=== PATIENT | female | born 1990 | race Caucasian/White ===

== ENCOUNTER 2018-05-29 09:48 | Emergency (ER) | payer MEDICAID, SELFPAY ==
[2018-05-29 09:50] VITALS: BP 119/72; PULSE 101; RESP 17; TEMP 37.1; O2SAT 100; BMI 20.9
--- NOTE | 2018-05-29 10:06 | US_ITS ---
STUDY: FIRST TRIMESTER OBSTETRICAL ULTRASOUND REASON FOR EXAM: Female, 27 years old. Bleeding, LMP: 04/21/2018 TECHNIQUE: Transabdominal PRIOR ULTRASOUND: None. FINDINGS: There is visualization of a single gestational sac in a normal intrauterine position. The mean sac diameter (MSD) measures 1.2 cm, indicating an estimated gestational age (EGA) of 6 weeks, 0 days. The gestational sac shape is within normal limits. There is a visualized yolk sac. The yolk sac measures 3 mm. The placenta is non-visualized. There is no demonstrated embryo ( pole). . The estimated gestation age (EGA) by LMP is 5 weeks, 3 days. The estimated date of delivery (MIREYA) by LMP is 01/26/2019. The estimated gestation age (EGA) by US is 6 weeks, 0 days. The estimated date of delivery (MIREYA) by US is 01/22/2019. The uterus measures 8.5 x 5.4 x 4.3 cm. There is no demonstrated uterine fibroid. The cervix is closed. The right ovary measures 3.5 x 3.0 x 2.6 cm. There is no right ovarian cyst. There is no visualized right adnexal mass or complex lesion. The left ovary measures 3.7 x 3.5 x 2.6 cm. There is a simple left ovarian cyst measuring 1.4 cm. There is minimal fluid in the cul de sac. US/Transvaginal w/Preg US IMPRESSION: There is a normal-appearing intrauterine gestational sac. However there is no pole or heart rate identified. There is evidence of a normal-appearing yolk sac. It is likely too early to determine viability. Gestational sac measures 6 weeks 0 days. Correlation with beta-hCG studies and follow-up ultrasound in 5-7 days to determine viability. Simple left ovarian cyst Minimal free fluid No sonographic evidence of extrauterine gestation Electronically Signed: Alonzo Toussaint MD at 11:50 EDT , Service support ,
--- NOTE | 2018-05-29 10:09 | ED.VISSUMM ---
- ER Visit Summary Date of Service: 05/29/18 Chief Complaint: Vaginal bleeding History of Present Illness: The patient is a 27 F who presents with vaginal bleeding that slightly heavier than a menstrual period with cramping central infraumbilical discomfort. She does not know blood type. She does report nausea in the past couple of weeks. Onset of bleeding cramping discomfort this morning. She denies passing clots or tissue. She has no medical problems. She has no allergies. She has no past surgical history. She denies orthostatic symptoms. She denies pain referred to her shoulders. There is no history of trauma. Review of systems otherwise negative. Physical Examination: Vital signs are remarkable heart rate 101. Head is atraumatic normocephalic. Pupils are equal round reactive. Extraocular muscles are intact. TMs are pearly white with landmarks noted. Nares patent with no drainage. Posterior pharynx without erythema or exudate. Uvula is midline. There is no dysphonia or dysphasia. Trachea is midline. There is no stridor with auscultation of the neck. Heart is regular without murmur, gallop or rub. S1 and S2 are normal. Lungs are clear to auscultation with good movement of air bilaterally. Abdomen minimal infraumbilical central abdominal discomfort. Scar secondary to umbilical piercing. No other scars noted. There is no CVA tenderness noted. There is no evidence of inguinal hernia. He is alert oriented ?3 Test Results: Quantitative hCG 18,563. Pelvic ultrasound revealed a normal-appearing gestational sac. No heartbeat noted. Emergency Department Course and Treatment: Orders were placed to assess ABO Rh, serum quantitative, ultrasound to assess viability of and to evaluate for ectopic . Serum quant hCG was obtained as well. Order for pelvic set up was placed as well. Treatment Plan: Repeat quantitative hCG in 2 days and follow-up with Dr. Madai Foote in 1 week Disposition: Discharged to home with appropriate home-going instructions Impression: Vaginal bleeding first trimester, threatened AB This note was generated with [employer] dictation software. It may contain incorrect words, spelling, and punctuation that were not noted in review of the chart prior to signing ED Disposition - Plan for ED Patient: Disposition: Home or Assisted Living Chief Complaint: Vag Bld, Preg Instructions: ED Miscarriage Poss Referrals: Care Physician,No Primary [Primary Care Provider] - Laura Blair MD [STAFF PHYSICIAN] - 1 Week Additional Instructions: You will need to present to outpatient lab in 2 days to have repeat blood work.
--- NOTE | 2018-05-29 10:12 | ED.DCSUM_ITS ---
- ER Visit Summary Date of Service: 05/29/18 Chief Complaint: Vaginal bleeding History of Present Illness: The patient is a 27 F who presents with vaginal bleeding that slightly heavier than a menstrual period with cramping central infraumbilical discomfort. She does not know blood type. She does report nausea in the past couple of weeks. Onset of bleeding cramping discomfort this morning. She denies passing clots or tissue. She has no medical problems. She has no allergies. She has no past surgical history. She denies orthostatic symptoms. She denies pain referred to her shoulders. There is no history of trauma. Review of systems otherwise negative. Physical Examination: Vital signs are remarkable heart rate 101. Head is atraumatic normocephalic. Pupils are equal round reactive. Extraocular muscles are intact. TMs are pearly white with landmarks noted. Nares patent with no drainage. Posterior pharynx without erythema or exudate. Uvula is midline. There is no dysphonia or dysphasia. Trachea is midline. There is no stridor with auscultation of the neck. Heart is regular without murmur, gallop or rub. S1 and S2 are normal. Lungs are clear to auscultation with good movement of air bilaterally. Abdomen minimal infraumbilical central abdominal discomfort. Scar secondary to umbilical piercing. No other scars noted. There is no CVA tenderness noted. There is no evidence of inguinal hernia. He is alert oriented ?3 Test Results: Quantitative hCG 18,563. Pelvic ultrasound revealed a normal- appearing gestational sac. No heartbeat noted. Emergency Department Course and Treatment: Orders were placed to assess ABO Rh, serum quantitative, ultrasound to assess viability of and to evaluate for ectopic . Serum quant hCG was obtained as well. Order for pelvic set up was placed as well. Treatment Plan: Repeat quantitative hCG in 2 days and follow-up with Dr. Madai Foote in 1 week Disposition: Discharged to home with appropriate home-going instructions Impression: Vaginal bleeding first trimester, threatened AB This note was generated with [employer] dictation software. It may contain incorrect words, spelling, and punctuation that were not noted in review of the chart prior to signing ED Disposition - Plan for ED Patient: Disposition: Home or Assisted Living Chief Complaint: Vag Bld, Preg Instructions: ED Miscarriage Poss Referrals: Care Physician,No Primary [Primary Care Provider] - Laura Blair MD [STAFF PHYSICIAN] - 1 Week Additional Instructions: You will need to present to outpatient lab in 2 days to have repeat blood work.
[2018-05-29 11:07] LABS: hCG Titer Quant., Serum 18593 mIU/mL (<9 non-preg)
[2018-05-29 13:17] VITALS: BP 105/54; PULSE 78; RESP 16; O2SAT 99
== END 2018-05-29 13:21 | disposition home or self-care (01) ==
PROVIDERS: Emergency Provider Emergency Medicine
DX: O20.0 Threatened abortion (principal); O99.330 Smoking (tobacco) complicating pregnancy, unspecified trimester; Z3A.00 Weeks of gestation of pregnancy not specified
CPT/HCPCS: 76817; 84702; 86900; 86901; 99283

== ENCOUNTER → 2018-05-31 17:07 | Outpatient (CLI) | payer MEDICAID, SELFPAY | PROVIDERS: Obstetrics & Gynecology; Visit Provider Emergency Medicine | DX: O46.90 Antepartum hemorrhage, unspecified, unspecified trimester (principal); Z3A.00 Weeks of gestation of pregnancy not specified | CPT/HCPCS: 36415; 84702 ==

== ENCOUNTER 2019-01-07 16:40 | Inpatient (IN) | payer MEDICAID, SELFPAY ==
[2019-01-07 17:32] VITALS: BMI 32.5
[2019-01-07 17:33] LABS: Protein:Creat Ratio 911 mg/g CRE (0-200)
[2019-01-07] MEDS: 0.9% Saline Lock 10 ML Syringe IV (17:45)
[2019-01-07 18:04] LABS: Hematocrit 38.1 % (37-47); Hemoglobin 12.4 g/dl (12.0-15.0); Mean Corp Hgb Conc 32.5 g/gl (32-36); Mean Corpuscular Hgb 29.2 pg (27.0-32.0); Mean Corpuscular Volume 89.6 fL (81-99); Mean Platelet Vol. 11.6 fl (6.2-12.0); Platelet Count 258 K/mm3 (150-450); RBC Distribution Width CV 13.3 % (11.6-14.6); RBC Distribution Width SD 42.9 fl (35.1-43.9); Red Blood Count 4.25 M/mm3 (4.2-5.4); Scan Indicated on CBC? Y/N NO; White Blood Count 13.3 K/mm3 (4.4-11.0)
[2019-01-07 18:10] LABS: Prothrombin Time (Protime)PT. 13.1 SECONDS (11.7-14.9)
[2019-01-07 18:11] LABS: Partial Thromboplast Time 28.6 Seconds (24.1-36.2)
[2019-01-07 18:18] LABS: AST(SGOT) 30 U/L (15-37); Alanine Aminotransfer ALT/SGPT 26 U/L (13-56); Creatinine, Serum 0.83 mg/dL (0.55-1.02); EST Glomerular Filtration Rate 88 mL/min (>60); Est Glom Filt Rate - Afr Amer 107 mL/min (>60); Uric Acid 3.7 mg/dL (2.6-6.0)
[2019-01-07] MEDS: miSOPROStol 25 MCG TABLET VAGINAL (18:26)
--- NOTE | 2019-01-07 18:39 | PCM.HP.OB ---
- Problem List (1) Pre-eclampsia in third trimester Status: Acute History Date of Admission: 01/07/19 Final MIREYA: 01/26/19 Final MIREYA Source: US <20 weeks Gestational age: 37 Weeks and 2 Days History of this : This is a 28 year-old, G [1], P [0], at 37 weeks gestational age presenting to [facility] today for BP check visit. Patient was seen on Friday 01/05 for visit and noted to have elevated blood pressure at visit 142/82. Urine P/C ratio at that time was 0.3 and other pre-eclampsia panel bloodwork in the normal range. At visit today, patient's BP again elevated 146/94 with follow-up blood pressures in the 150s/100s. Patient sent to labor and delivery for induction of labor for GHTN vs. pre-eclampsia. Allergies No Known Allergies Allergy (Verified 01/07/19 17:18) Home Medications: Home Medications Sertraline HCl [Zoloft] 50 mg PO DAILY 05/29/18 Vits [Prenatabs FA] 1 tablet PO DAILY 01/07/19 Smoking Status: Former smoker Alcohol: None Substance Use Type: Marijuana - Admitted last use about a month ago Number of Fetus(es): 1 Heart Tracing: Baseline 130, moderate variability, + accels, no decels noted TOCO Analysis: Irregular ctx q 2-6 minutes, lasting 45-70 seconds, palpate mildly strong History Past Pregnancies: Past Pregnancies Delivery Date Name GA/Weeks Outcome Route Weight Gender Labor Length Anesthesia Delivery Location Provider FOB Labs: O+, Abs Neg, Rubella Imm, HepBsAg Neg, HIV NR, Syphilis NR, GC/CT Neg/Neg, CBC WNL x 2, GBS Positive, Sequential Screen Negative, 1 hour GCT = 92, Urine Tox in beginning of - Neg, Urine Culture Negative Expected Infant Delivery Method: Spontaneous Vaginal Describe any other labor & delivery plans:: May be interested in epidural Number of Visits: 14 Review of Systems Constitutional: Denies: Chills, Fever, Weight Change HEENT: Reports: Head Aches - Mild - easily relieved with Tylenol. Denies: Sinus Congestion, Sinus Drainage Cardiovascular: Denies: Chest Pain, Palpitations Respiratory: Denies: Cough, Shortness of breath at rest, Sputum production Gastrointestinal: Denies: Abdominal Pain, Nausea, Vomiting Genitourinary: Denies: Dysuria Gynecological: Denies: Vaginal bleeding, Vaginal discharge, Vaginal itching Musculoskeletal: Denies: Joint Pain, Joint Tenderness Skin: Denies: Rash, Wounds Neurological: Denies: Numbness, Tingling, Focal weakness Psychiatric: Denies: Anxiety, Depression, Homicidal Ideations, Suicidal Ideations Hematologic/ Lymphatic: Denies: Easy Bruising, Easy Bleeding Physical Exam Vitals: See Nursing Note for Vitals - BPs in 140-150/80-90s, otherwise vitals in normal range and patient is afebrile General: Alert, Oriented x3, No apparent distress HEENT: Atraumatic, Normocephalic. Negative for: Thyromegaly, Lymphadenopathy Cardiovascular: Regular rate, Regular Rhythm Lungs: Normal air movement Abdomen: Soft, Non Tender, Gravid Extremities:: Other - +1/+1 pitting edema noted in LE Neurological: Cranial nerves II-XII grossly intact, Deep Tendon Reflexes 2+/4 and Symmetrical, Neuro grossly intact ASSIST[employer]CH [employer]GER: Normal external genitalia. Negative for: Vulvar lesions Estimated gestational size: Appropriate for gestational size Presentation: Cephalic Cervix Dilation (cm): 1 Station: -2 Effacement (%): 70 Assessment/Plan All Active Problems Pre-eclampsia in third trimester (Acute) This is a 28 year-old, G [1], P [0], at 37 weeks gestational age, Pre-Eclampsia without severe features, Category I FHT. P: 1) Patient admitted for IOL - Cytotec 25mcg PV per protocol 2) Pre-eclampsia bloodwork in normal range, increased proteinuria noted (from 0.3 to 0.911) - diagnosis of pre-eclampsia without severe features noted 3) Dr. Bell aware of admission and is in agreement with plan of care 4) Anticipate repeat pre-eclampsia panel if further elevations in BP noted or patient becomes symptomatic 5) Reassess cervical exam PRN or with change in maternal or status Alcira Merida APRN-OCTAVIA
[2019-01-07 19:32] LABS: Amphetamine Urine VISTA NEGATIVE (<1000 ng/mL); Barbiturate Urine VISTA NEGATIVE (< 200 ng/mL); Benzodiazepine Urine VISTA NEGATIVE (< 200 ng/mL); Cocaine Urine VISTA NEGATIVE (< 300 ng/mL); Ecstacy Urine VISTA NEGATIVE (< 500 ng/mL); Methadone Urine VISTA NEGATIVE (< 300 ng/mL); PCP Urine VISTA NEGATIVE (< 25 ng/mL); THC Urine VISTA NEGATIVE (< 50 ng/mL); Vista UDS pH Range 6
[2019-01-07] MEDS: Sertraline 50 MG Tablet PO (21:25)
[2019-01-07] MEDS: Mag Hydrox/Al Hydrox/Simeth 30 ML UDC PO (22:08)
[2019-01-07] MEDS: 0.9% Normal Saline 100 ML IV.SOLN. INTRA-UTER (22:35)
--- NOTE | 2019-01-07 22:42 | PCM.PN.OB ---
Patient Problems: Active and Suspected Problems Pre-eclampsia in third trimester (Acute) Subjective: Patient resting in bed at this time, reports no issues currently. Denies CODY, denies scotoma, denies RUQ pain. Discussed plan for repeat SVE at this time, patient consents and all questions answered Objective: VSS, Afebrile. Blood pressures consistently still in 140/90s. FHT baseline 125, moderate variability, + accels, no decels Ctx q 1-4 minutes, palpate mild to moderate in strength SVE = 1-2/70/-2 anterior to midposition, cervical salazar bulb placed without difficulty - Physical Exam General: Alert, Oriented x3, Cooperative HEENT: Atraumatic, Normocephalic Lungs: Normal air movement Cardiovascular: Regular rate, No murmurs Abdomen: Soft, Non Tender, Gravid, Appropriate for Gestational Age Extremities: Capillary Refill Less than 3 Seconds, Edema - +1/+1 edema in LE Musculoskeletal: No Tenderness to Palpation of Joints or Extremities Neurological: Cranial nerves II-XII grossly intact, Deep Tendon Reflexes 2+/4 and Symmetrical Psych/Mental Status: Normal Affect, Appropriate Weight: 190 lb 0.615 oz Body Mass Index (BMI) 32.5 Intake and Output for Last 24 Hours 01/05/19 01/06/19 01/07/19 23:59 23:59 23:59 Intake Total 1200 / 1200 Output Total 600 / 600 Balance 600 / 600 Laboratory Tests Past 24 Hrs 01/07/19 01/07/19 01/07/19 17:10 17:45 17:45 WBC 13.3 H RBC 4.25 Hgb 12.4 Hct 38.1 MCV 89.6 MCH 29.2 MCHC 32.5 RDW 13.3 RDW Differential 42.9 Plt Count 258 MPV 11.6 PT INR APTT Creatinine Estim Creat Clear Calc Est GFR (MDRD) Af Amer Est GFR (MDRD) Non-Af Uric Acid AST ALT U Random Total Protein 44.0 H Urine Creatinine 48.30 Protein/Creatinin Ratio 911 H Urine Opiates Screen Urine Methadone Screen Ur Barbiturates Screen Ur Phencyclidine Scrn Ur Amphetamines Screen U Methamphetamin-MDMA U Benzodiazepines Scrn Urine Cocaine Screen U Cannabinoids Screen Ur Drug Screen Comment Blood Type O POSITIVE Antibody Screen NEGATIVE 01/07/19 01/07/19 01/07/19 17:45 17:45 18:30 WBC RBC Hgb Hct MCV MCH MCHC RDW RDW Differential Plt Count MPV PT 13.1 INR 1.0 APTT 28.6 Creatinine 0.83 Estim Creat Clear Calc 88.70 Est GFR (MDRD) Af Amer 107 Est GFR (MDRD) Non-Af 88 Uric Acid 3.7 AST 30 ALT 26 U Random Total Protein Urine Creatinine Protein/Creatinin Ratio Urine Opiates Screen NEGATIVE Urine Methadone Screen NEGATIVE Ur Barbiturates Screen NEGATIVE Ur Phencyclidine Scrn NEGATIVE Ur Amphetamines Screen NEGATIVE U Methamphetamin-MDMA NEGATIVE U Benzodiazepines Scrn NEGATIVE Urine Cocaine Screen NEGATIVE U Cannabinoids Screen NEGATIVE Ur Drug Screen Comment Blood Type Antibody Screen Medical Necessity - Tobacco Use Smoking Status: Former smoker Assessment/Plan All Active Problems Pre-eclampsia in third trimester (Acute) 28 y/o @ 37.2 weeks, IOL for Pre-Eclampsia without Severe Features, Category I FHT P: 1) Cervical salazar catheter placed, patient already cassia q 1-4 minutes. Will plan to initiate IV pitocin with catheter in place if contractions space out > 4 minutes apart with maximum pitocin dose 10 milliunits/hour 2) Anticipate plan for IV pitocin per protocol for labor augmentation once salazar catheter expelled. 3) Encourage position changes, PO hydration - IV heplocked at this time. Once pitocin started with titrate total IV+PO fluids to the 125 ml/hr 4) Reassess cervical dilation PRN with changes in maternal or status Alcira Merida APRN-CNM
[2019-01-07] MEDS: Acetaminophen 325 MG Tablet PO (23:00)
[2019-01-08] MEDS: Acetaminophen 325 MG Tablet PO (03:03)
[2019-01-08] MEDS: 0.9% Saline Lock 10 ML Syringe IV ×3 (04:16→18:35)
[2019-01-08] MEDS: Oxytocin 30 units/NS 500 ml 30 UNITS/500 ML IV.SOLN IV (04:18)
[2019-01-08] MEDS: Lactated Ringers 1,000 ML 50 ML IV ×3 (04:18→11:02)
[2019-01-08] MEDS: Nalbuphine 10 MG/ML Ampul IV ×2 (05:06→08:05)
--- NOTE | 2019-01-08 06:23 | PCM.PN.OB ---
Patient Problems: Active and Suspected Problems Pre-eclampsia in third trimester (Acute) Subjective: Patient resting, comfortable after receiving dose of Nubain. Denies any continued pelvic pain/pressure at this time. Denies CODY, denies scotoma or RUQ pain. Consents to repeat at this time. Objective: VSS, Afebrile. Blood Pressures overnight 120s-140s/80-90s FHT baselin 125, moderate variability, + accels, no decels noted Ctx q 2-3 minutes, moderately strong to palpation SVE = 5-6/80/-1 - Physical Exam General: Alert, Oriented x3, No apparent distress Lungs: Normal air movement Cardiovascular: Regular rate, Regular Rhythm Abdomen: Soft, Non Tender, Gravid Extremities: Edema Neurological: Deep Tendon Reflexes 2+/4 and Symmetrical - no clonus noted Psych/Mental Status: Normal Affect, Appropriate Weight: 190 lb 0.615 oz Body Mass Index (BMI) 32.5 Intake and Output for Last 24 Hours 01/06/19 01/07/19 01/08/19 23:59 23:59 23:59 Intake Total 1800 / 1800 200 / 200 Output Total 1200 / 1200 700 / 700 Balance 600 / 600 -500 / -500 Laboratory Tests Past 24 Hrs 01/07/19 01/07/19 01/07/19 17:10 17:45 17:45 WBC 13.3 H RBC 4.25 Hgb 12.4 Hct 38.1 MCV 89.6 MCH 29.2 MCHC 32.5 RDW 13.3 RDW Differential 42.9 Plt Count 258 MPV 11.6 PT INR APTT Creatinine Estim Creat Clear Calc Est GFR (MDRD) Af Amer Est GFR (MDRD) Non-Af Uric Acid AST ALT U Random Total Protein 44.0 H Urine Creatinine 48.30 Protein/Creatinin Ratio 911 H Urine Opiates Screen Urine Methadone Screen Ur Barbiturates Screen Ur Phencyclidine Scrn Ur Amphetamines Screen U Methamphetamin-MDMA U Benzodiazepines Scrn Urine Cocaine Screen U Cannabinoids Screen Ur Drug Screen Comment Blood Type O POSITIVE Antibody Screen NEGATIVE 01/07/19 01/07/19 01/07/19 17:45 17:45 18:30 WBC RBC Hgb Hct MCV MCH MCHC RDW RDW Differential Plt Count MPV PT 13.1 INR 1.0 APTT 28.6 Creatinine 0.83 Estim Creat Clear Calc 88.70 Est GFR (MDRD) Af Amer 107 Est GFR (MDRD) Non-Af 88 Uric Acid 3.7 AST 30 ALT 26 U Random Total Protein Urine Creatinine Protein/Creatinin Ratio Urine Opiates Screen NEGATIVE Urine Methadone Screen NEGATIVE Ur Barbiturates Screen NEGATIVE Ur Phencyclidine Scrn NEGATIVE Ur Amphetamines Screen NEGATIVE U Methamphetamin-MDMA NEGATIVE U Benzodiazepines Scrn NEGATIVE Urine Cocaine Screen NEGATIVE U Cannabinoids Screen NEGATIVE Ur Drug Screen Comment Blood Type Antibody Screen Medical Necessity - Tobacco Use Smoking Status: Former smoker Assessment/Plan All Active Problems Pre-eclampsia in third trimester (Acute) 28 y/o @ 37.3 weeks, IOL for Pre-Eclampsia without Severe Features, Category I FHT P: 1) Guerrero bulb expelled with SVE exam - continue IV pitocin at this time for labor augmentation per protocol 2) Start IV PCN for GBS prophylaxis at this time per protocol 3) Encourage position changes, clear liquid diet now 4) Epidural on demand if desired by patient 5) Report given to oncoming provider Alcira CUMMINGS
--- NOTE | 2019-01-08 07:55 | PN_ITS ---
Progress Note pt seen at bedside, resting comfortably. Pitocin at 6mu. AROM performed- clear fluid. Vertex on exam- /-1. IUPC placed. Pt is planning epidural. PCN for GBS. Pt reports intermittent headache but otherwise if feeling well. denies CP, Blurry vision or epigastric pain. Magnesium was not started- PRE E without severe features. If BP trends up or patient is symptomatic will start Magnesium. Anticipate . FHR 125 mod jacy, + accels no decels- Reactive cat 1. TOCO q 2- 3min.
[2019-01-08] MEDS: fentaNYL-bupivacaine (epidural) 100 ML BAG EPIDURAL ×2 (08:45→13:01)
[2019-01-08] MEDS: Ondansetron 4 MG/2 ML Vial IV (10:11)
[2019-01-08] MEDS: Oxytocin 30 units/NS 500 ml 30 UNITS/500 ML IV.SOLN 334 UNITS IV (16:55)
--- NOTE | 2019-01-08 17:15 | PCM.OB.VAG ---
Vaginal Delivery Maternal Presentation: Medically Indicated Induction Method of Induction: Pitocin, Amniotomy, Cytotec Amniotic Membrane Rupture Type: Spontaneous Amniotic Fluid Description: Clear Final MIREYA: 01/26/19 Gestational age: 37 Weeks and 3 Days Date of Procedure: 01/08/19 Pre-Operative Diagnosis: Preeclampsia without severe features, early term gestation Post-Operative Diagnosis: Live male infant born Surgery/ Procedure Performed: Spontaneous Vaginal Delivery Type of Anesthesia: Epidural Description of Procedure: of live male infant born- head delivered followed by anterior shoulder however 50sec until rest of body delivered- tight vaginal canal- no shoulder dystocia, poor maternal pushing efforts. to peds upon delivery for evaluation. Vagina was intact after delivery. Placenta delivered without difficulty. Presentation: Vertex Placental Delivery Description: Spontaneous Placenta Disposition: [facility] Cord Vessel Description: 3 Vessels Nuchal Cord Compression: Without compression Cord Gases drawn per routine: ABG, VBG Cord Entanglement: None Drain: Guerrero to straight drain Estimated Blood Loss: 200 A gender: Male (1 minute): 5 (5 minute): 9 Episiotomy Description: None Laceration: None Medications given after delivery: IV Pitocin Complications: None
[2019-01-08] MEDS: Oxytocin 30 units/NS 500 ml 30 UNITS/500 ML IV.SOLN 167 UNITS IV (17:25)
[2019-01-08] MEDS: Acetaminophen 500 MG Tablet 1000 MG PO (20:32)
[2019-01-08 20:35] VITALS: BP 135/76; PULSE 120; RESP 16; TEMP 37.5; O2SAT 96
[2019-01-08] MEDS: Sertraline 50 MG Tablet PO (21:55)
[2019-01-09] VITALS: BP 129/77; PULSE 107; RESP 16; TEMP 36.8; O2SAT 97
[2019-01-09 04:00] VITALS: BP 143/98; PULSE 96; RESP 16; TEMP 36.9; O2SAT 97
--- NOTE | 2019-01-09 06:31 | PCM.PN.OB ---
Patient Problems: Active and Suspected Problems Pre-eclampsia in third trimester (Acute) Subjective: pt seen at bedside doing well. breast feeding. Pt reports good pain control. lochia mild. - Physical Exam General: Alert, Oriented x3 Abdomen: Soft, Non Tender, Non-Distended, - - fundus firm Extremities: No Calf Tenderness Vital Signs Temp Pulse Resp BP Pulse Ox 98.5 F 96 16 143/98 H 97 01/09/19 04:00 01/09/19 04:00 01/09/19 04:00 01/09/19 04:00 01/09/19 04:00 Oxygen Delivery Method Room Air Weight: 86.2 kg Body Mass Index (BMI) 32.5 Intake and Output for Last 24 Hours 01/07/19 01/08/19 01/09/19 23:59 23:59 23:59 Intake Total 1800 / 1800 3927 / 3927 Output Total 1200 / 1200 2900 / 2900 Balance 600 / 600 1027 / 1027 Medical Necessity - Tobacco Use Smoking Status: Former smoker Assessment/Plan All Active Problems Pre-eclampsia in third trimester (Acute) PPD#1, doing well 1) continue to monitor BPs 2) ambulation 3) pain mgmt 4) routine care
--- NOTE | 2019-01-09 06:37 | DCINST_ITS ---
Discharge Diet: No Restrictions Discharge Activity: Return to Normal Activity, May not drive while taking narcotic pain medications., May Shower May resume sexual activity in: 4-6 weeks Additional Activity Instructions:: Nothing in the vagina for 4-6 weeks. You may return to work/school in 6 weeks. Call your doctor if your incision/area has: Continuous Slow Oozing, Sudden Increased Bleeding, Increased Pain/ Swelling, Increased Redness, Foul Smelling Discharge Additional Instructions: If you experience any of the following, contact your healthcare provider. * Bleeding that soaks a pad every hour for 2 hours * Fever 100.4 or higher * Unrelieved incision or abdominal pain * Swelling, redness, discharge or bleeding from your incision or episiotomy site * Your incision begins to separate * Problems urinating (including inability to urinate or burning while urinating). * Visual changes * Severe headache * Flu-like symptoms * Pain or redness in one of both of your breasts * Pain, warmth, tenderness or swelling in your legs, especially the calf area * Frequent nausea and vomiting * Symptoms of depression or anxiety If you experience any of the following, call 911 or go to the nearest Emergency Room. * Chest pain * Problems breathing * Seizure activity * Partial or complete paralysis of a body part, slurred speech, weakness or drooping of the face, or a sudden inability to walk or hold your balance Allergies/Adverse Reactions: Allergies No Known Allergies Allergy (Verified 01/07/19 17:18) Medications to take at Discharge Sertraline HCl [Zoloft] 50 mg PO DAILY 05/29/18 Vits [Prenatabs FA ] 1 tablet PO DAILY 01/07/19 Ibuprofen [Motrin] 600 mg PO Q6H PRN PRN #30 tablet 01/09/19 Sertraline HCl [Zoloft] 50 mg PO DAILY tablet 01/09/19 The following prescriptions were given: Ibuprofen [Motrin] 600 mg PO Q6H PRN PRN #30 tablet PRN Reason: Mild Pain (-01/17) Please Follow Up With: Laura Blair MD - follow up in 3 days When: Call to make an appointment with your doctor in 6 weeks. If you had e levated Blood Pressure or 4th degree laceration you will need to be seen in 1 weeks. Primary Care Physician: Care Physician,No Primary [Primary Care Provider] - Test Results: Test results from this visit will be discussed in further detail at your follow- up appointment, if applicable.
[2019-01-09 08:00] VITALS: BP 133/83; PULSE 101; RESP 16; TEMP 36.6
[2019-01-09] MEDS: Acetaminophen 500 MG Tablet 1000 MG PO ×2 (08:39→19:44)
[2019-01-09 12:00] VITALS: BP 131/79; PULSE 94; RESP 16; TEMP 36.6
[2019-01-09 16:40] VITALS: BP 141/84; PULSE 85; RESP 16; TEMP 36.8
--- NOTE | 2019-01-09 16:48 | CASEMGMT ---
Social Work Assessment Labor and Delivery Unit Date of Referral: 01/08/2019 Time of Referral: 0830 Referred By: verbal notification by labor RN, Mark Escoto. Date of Intervention: 01/09/2019 Time of Intervention: 1515 Reason for Referral: maternal history of depression and reported use of marijuana History obtained from: medical record, mother of baby (MOB) David Fernandez; father of baby (FOB) Júnior Diamond also present for part of conversation. Household composition MOB and FOB report to live together and that home situation is safe and adequate. Later on when verifying patient?s address and emergency contacts noted that MOB?s parents are lists at the same address. MOB then reported that lives with parents. MOB denies any safety concerns at home with the parents or with Júnior. Patient's parent/guardian status: MOB is 26 and FOB is 30, have been together for a little over one year. MOB denies any form of abuse in the relationship. baby is the first for both parents. Baby is to be named Bakari Diamond. Medical History: MOB is G1, P0 to 1 after delivery Bakari. care was good and started early at 8 weeks. Baby born weighing 7 pounds 13 ounce, Apgars 5-9-9 at 1-5-10 minutes of life. Educational Status: MOB reports graduated high school, denies learning or comprehension issues, repots can read and write. Financial Status: MOB an FOB both work at [employer] from [phone]. Infant Supplies: MOB reports to have needed supplies including crib, clothing, diapers, wipes, car seat, and will be getting a breast pump. Childcare/Caregiver(s): MOB with help from FOB and then support from family as needed. Transportation: No reported issues or access issues with transportation. Programs/Agencies Involved: S for medical. Interested WIC and reports agreement to [facility] referral. Behavioral Health Issues: Mental Health History: MOB reports history of depression, has been treated at [facility] with Dr. Morejon. MOB reports through this medications managed by OBGYN. MOB has been on Zoloft for 2 years and reports this has been working well. MOB denies any thoughts, plans, intent or past attempts at suicide. Does admits to history of self harm as a teen, denies any desires or thoughts to self harm during this . No thoughts of harm to others reported either. Substance Use History: MOB denies alcohol use, even socially and not in . MOB denies any illicit drug use such as heroin, cocaine, meth, or prescription narcotics. MOB does admit to smoking marijuana and that did so a few Times to help with sleep. Last use reported to be a month ago. MOB reports history of tobacco smoking but quit this . Family History: Depression MOB?s maternal side of the fatly. Drug Screens: maternal screens negative 06-26-2018 and 01-07-2019. Baby?s urine drug screen negative at delivery and meconium is pending. Family/Social Stressors: No reported stressors shared. unplanned but accepted. MOB reports to feel a connection to the baby and to feel happy, though admits was worried about becoming overwhelmed. MOB reports that feels much better than thought would at this point. Support Systems: FOB, MOB?s parents and other family. MOB reports to have friends who are emotional supports. Depression/Shaken Baby/Safe Sleeping : Educated MOB and FOB to depression and anxiety, importance of seeking out help, and risk factors. Touched on safe sleeping and shaken baby (pamphlets also given on these topics). ASSESSMENT: MOB, FOB, and MOB?s grandmother present for beginning of conversation when general information gathered and general education on mood issues discussed. FOB and grandmother left the room at dialysis social worker?s request and further explored with MOB and concerns about domestic violence, mental health history, and substance use. MOB reports intent to stay on antidepressant medications and indicates understanding of need to let others know if symptoms arise. MOB denies intent to smoke marijuana at this point and especially not while breast feeding. MOB reports marijuana has helped MOB with sleeping, even before . MOB reports to have needed supplies, FOB is taking some time from work to help and other family is around to help. MOB calm, held good eye contact, answered questions though not real expansive. MOB had flattened affect, but smiled at appropriate times. MOB did ask questions about WIC, insurance, and about meconium drug screen results as relates to children services referral. MOB held baby and put baby to breast for a short time, but not real engaged in trying to keep baby latched or do complete feeding as evidenced by short time baby to breast and no efforts made to wake baby up for feeding. MOB?s grandmother was the person to initiate with MOB the need to feed baby. Though MOB not really assertive with feeding, MOB did handle baby gently. Safe Plan of Care for infant related to substance use: MOB reports plan not to use marijuana while breast feeding. If uses again in the future would not marco a in the home and would have someone watch the baby. MOB made aware that if meconium comes back positive a children services case will likely be opened. MOB expresses understanding. PLAN: MOB and baby to home. [facility] resources lists, depression information given, [facility] [place] [facility] [place] pertinent benefitst for new mothers given. Will complete [facility] referral Will monitor for meconium results. . -BECCA Griffin, [employer]
[2019-01-09 19:47] VITALS: BP 142/88; PULSE 94; RESP 16; TEMP 36.9; O2SAT 95
[2019-01-09] MEDS: Ibuprofen 600 MG Tablet PO (22:24)
[2019-01-09] MEDS: Sertraline 50 MG Tablet PO (22:24)
[2019-01-10 01:50] VITALS: BP 133/83; PULSE 88; RESP 16; TEMP 36.7; O2SAT 98
--- NOTE | 2019-01-10 08:23 | PCM.PN.OB ---
Patient Problems: Active and Suspected Problems Pre-eclampsia in third trimester (Acute) Subjective: pt seen at bedside, doing well. pt reports good pain control. lochia mild. Denies CODY, visual changes. breast feeding. - Physical Exam General: Alert, Oriented x3 Abdomen: Soft, Non Tender, - - fundus firm Extremities: No Calf Tenderness Vital Signs Temp Pulse Resp BP Pulse Ox 98.0 F 88 16 133/83 H 98 01/10/19 01:50 01/10/19 01:50 01/10/19 01:50 01/10/19 01:50 01/10/19 01:50 Oxygen Delivery Method Room Air Weight: 86.2 kg Body Mass Index (BMI) 32.5 Intake and Output for Last 24 Hours 01/08/19 01/09/19 01/10/19 23:59 23:59 23:59 Intake Total 3927 / 3927 Output Total 2900 / 2900 Balance 1027 / 1027 Medical Necessity - Tobacco Use Smoking Status: Former smoker Assessment/Plan All Active Problems Pre-eclampsia in third trimester (Acute) PPD#2, doing well- PRE E 1) will need follow up in office this week for BP check - pt verbalized understanding. 2) Routine care 3) Pain mgmt dc home
[2019-01-10 08:25] VITALS: BP 137/87; PULSE 89; RESP 16; TEMP 36.8; O2SAT 96
[2019-01-10 08:56] VITALS: BP 137/87; PULSE 89; RESP 16; TEMP 36.9; O2SAT 96
[2019-01-10] MEDS: Ibuprofen 600 MG Tablet PO (09:03)
--- NOTE | 2019-01-11 12:03 | CASEMGMT ---
Social Work Labor and Delivery [facility] referral submitted to the [facility]'s secure web based referral system. -YUSUF Griffin, NETWORK DIRECTOR
== END 2019-01-10 10:00 | disposition home or self-care (01) | DRG 560 ==
PROVIDERS: Advanced Practice Midwife; Admitting Provider Obstetrics & Gynecology; Referring Provider Obstetrics & Gynecology; Visit Provider Obstetrics & Gynecology
DX: O14.04 Mild to moderate pre-eclampsia, complicating childbirth (principal); O99.344 Other mental disorders complicating childbirth; F41.9 Anxiety disorder, unspecified; K21.9 Gastro-esophageal reflux disease without esophagitis; Z79.899 Other long term (current) drug therapy; Z87.891 Personal history of nicotine dependence; Z3A.37 37 weeks gestation of pregnancy; Z37.0 Single live birth
CPT/HCPCS: 59025; 59050; 80307; 82565; 82570; 84156; 84450; 84460; 84550; 85027; 85610; 85730; 86850; 86900; 99218; J7120; A4216; G0378; J2405

== ENCOUNTER 2019-01-10 23:03 | Emergency (ER) | payer MEDICAID, SELFPAY ==
--- NOTE | 2019-01-10 23:10 | ED.VISSUMM ---
- ER Visit Summary Date of Service: 01/10/19 Chief Complaint: I did not see this patient. I was notified by nursing that she gave less than a week ago. She has isolated hypertension without any other significant symptoms or abnormal vital signs. She is being escorted to OB triage. I explained I am happy to see the patient if she would want to be evaluated. History of Present Illness: The patient is a 28 F [] Physical Examination: [] Test Results: [] Emergency Department Course and Treatment: [] Treatment Plan: [] Disposition: [] Impression: [] This note was generated with [employer] dictation software. It may contain incorrect words, spelling, and punctuation that were not noted in review of the chart prior to signing ED Disposition - Plan for ED Patient: Referrals: Care Physician,No Primary [Primary Care Provider] -
--- OUTSIDE RECORDS SUMMARY | 2019-03-30 18:03 | XMS RPT_ITS | CCD ---
:1990 External Reference #:[id number] Author Organization [employer] Care Team Providers Name Role Phone Unavailable Unavailable Unavailable Allergies Reported Allergen Reaction(s) Severity Date of Onset Location OTHER Translations: [ 03-23-2007 - [facility] Main OTHER] [place] Repository Problems Active Problems Category Problem Name Status Date Location Other screening for Encounter for Active 07-23-2018 - [facility] suspected conditions screening for nuchal [place] ([id number]) (not mental disorders translucency or infectious disease) Residual codes; 37 weeks gestation of Active 01-05-2019 - [facility] unclassified [place] ([id number]) Residual codes; Localized edema Active 12-22-2018 - [facility] unclassified [place] ([id number]) Residual codes; 28 weeks gestation of Active 11-04-2018 - [facility] unclassified [place] (73515) Unclassified early ob bleeding Active 06-02-2018 - [facility] ([id number]) Past or Other Problems Category Problem Name Status Date Location Other complications of Smoking (tobacco) Completed 07-23-2018 - [facility] complicating [place] ([id number]) , first trimester Other and Encounter for Completed 07-23-2018 [facility] delivery including supervision of normal [place] ([id number]) normal first , first trimester Results Result Name Value Range Unit Interpretation Flag Date Location cnov on 2018-07-28 CNOV Office Visit (WOOB) Normal 07-28-2018 [facility] AJBARI DE LA OASHLEY Noguera ([id number]) 1990 [facility] Date Time Provider Department ([id number]) 07/28/18 3:10 PM KIN PRITCHARD During your visit today, we recorded the following information about you: Blood pressure Weight 102/70 62.6 kg Kin Pritchard MD 07/28/2018 3:58 PM Signed David De La O is a 27 year old female who presents today for a colposcopy. Her last pap smear was ASCUS with positive HPV from June 2018. Patient has a history of abnormal pap: No. She has had prior treatment: none. test: n/a, patient is UNIVERSAL PROTOCOL / SAFETY CHECKLIST Procedure to be performed: Colposcopy with possible biopsy Sign in Communication: Completed Time Out: Team Confirms the Correct Patient, Correct Procedure, Correct Site and Site Marking, Correct Position (if applicable), Prep and Dry Time (if applicable). Time: 15:47 Affirmation of Time Out: YES Sign Out Discussion: Completed PROCEDURE: EXTERNAL GENITALIA: Normal in appearance without lesions VAGINA: Normal in appearance without lesions CERVIX: Speculum placed in vagina and excellent visualization of cervix achieved. Cervix swabbed x 3 with 3% acetic acid solution. Cervix grossly normal. Squamocolumnar junction visualized. acetowhite changes noted diffusely. BIOPSY: Not done. ECC: not done HEMOSTASIS: Obtained with n/a Procedure Summary: Patient tolerated procedure well. ASSESSMENT: mild dysplasia PLAN: Plan for repeat pap PP AND then colpo if abnormal. Kin Pritchard MD [facility] 07/28/2018 3:16 PM Signed YOUR RECOVERY It may take a few weeks for your cervix to heal. While your cervix heals, you may have: - Vaginal bleeding (less than a normal menstrual period) - Mild cramping - A brown-black vaginal discharge (similar to coffee grounds) which is a result of the paste used to help stop bleeding from the procedure Do NOT put anything in the vagina for 1 week after your colposcopy if your doctor does a biopsy of your cervix. This includes sex, tampons, and douches. If you have any discomfort, you may take an over the counter pain medication (motrin, advil, ibuprofen, tylenol, etc). If this does not relieve your discomfort, contact your doctor's office for a prescription strength pain medication. It is okay to wear a sanitary pad until the discharge and spotting stops. RISKS Although problems seldom occur with colposcopy, there can be some complications. You may feel faint during and shortly after the procedure as well as have some bleeding and vaginal discharge after the procedure. There is also a risk of infection after the procedure. These complications are rare and can be easily treated. You should contact you doctor is you have any of the following: - Heavy bleeding (more than your normal period) - Bleeding with clots - Severe abdominal pain - Fever (more than 100.4F) - Foul smelling vaginal discharge RESULTS If a biopsy was taken, we will have the results of your biopsy in 1-2 weeks. If you do not hear the results of your biopsy after 2 weeks, please contact your physicians office for the results. Depending on the biopsy results, your doctor will determine your follow up plan which may include further testing or treatments. STAYING HEALTHY After the procedure, you will need to see your doctor for follow up visits during the year. At these visits your doctor will check the health of your cervix with a pap smear. After three normal pap smears, your doctor will allow you to return to having exams once a year. If you have another abnormal pap smear, you may need closer follow up for longer or you may need additional treatment. By making a few lifestyle changes after the procedure, you can help protect the health of your cervix: - Have regular pelvic exams and pap smears as ordered by your doctor. - Stop smoking as smoking increases your risk of developing a cancer of the cervix - If you have more than one sexual partner, limit your number of partners and use condoms to reduce your risks of STDs. If you have any additional questions, please contact your doctor's office. Referring Provider: KIN PRITCHARD [[id number]] Allergies As of Date: 07/28/2018 Noted Allergy Reaction environmental [Other] 03/23/2007 Comments: seasonal allergies Date Reviewed: 07/28/2018 Reviewed by: Kin Pritchard - Fully Assessed Primary Visit Diagnosis:Atypical squamous cell changes of undetermined significance (ASCUS) on cervical cytology with positive high risk human papilloma virus (HPV) [R87.610, R87.810] Order(s):COLPOSCOPY [9981302] Order #: [id number] Prescriptions as of 07/28/2018 Sig: PROMETHAZINE 25 MG TABLET Take 1 tablet by mouth every * SERTRALINE 50 MG TABLET Take 1 tablet by mouth once d* VITAMIN,CALCIUM,MINE* Take 1 tablet by mouth. PYRIDOXINE (VITAMIN B6) 100 M* Take 100 mg by mouth once sanchez* Problem List As Of Date 07/28/2018 Noted Resolved Pain in Joint, Lower Leg [M25.569] INVALID FOR*02/01/2010 Cystic acne [L70.0] INVALID FOR* Bleeding in early [O20.9] INVALID FOR* More... History of depression [Z86.59] INVALID FOR* More... Nausea and vomiting during [O21.9] INVALID FOR* More... Tobacco use during , antepartum [O99.3*INVALID FOR* More... Patient requested diagnostic testing [Z01.89] INVALID FOR* More... Atypical squamous cell changes of undetermined *INVALID FOR* More... Other instructions from your clinician: YOUR RECOVERY It may take a few weeks for your cervix to heal. While your cervix heals, you may have: - Vaginal bleeding (less than a normal menstrual period) - Mild cramping - A brown-black vaginal discharge (similar to coffee grounds) which is a result of the paste used to help stop bleeding from the procedure Do NOT put anything in the vagina for 1 week after your colposcopy if your doctor does a biopsy of your cervix. This includes sex, tampons, and douches. If you have any discomfort, you may take an over the counter pain medication (motrin, advil, ibuprofen, tylenol, etc). If this does not relieve your discomfort, contact your doctor's office for a prescription strength pain medication. It is okay to wear a sanitary pad until the discharge and spotting stops. RISKS Although problems seldom occur with colposcopy, there can be some complications. You may feel faint during and shortly after the procedure as well as have some bleeding and vaginal discharge after the procedure. There is also a risk of infection after the procedure. These complications are rare and can be easily treated. You should contact you doctor is you have any of the following: - Heavy bleeding (more than your normal period) - Bleeding with clots - Severe abdominal pain - Fever (more than 100.4F) - Foul smelling vaginal discharge RESULTS If a biopsy was taken, we will have the results of your biopsy in 1-2 weeks. If you do not hear the results of your biopsy after 2 weeks, please contact your physicians office for the results. Depending on the biopsy results, your doctor will determine your follow up plan which may include further testing or treatments. STAYING HEALTHY After the procedure, you will need to see your doctor for follow up visits during the year. At these visits your doctor will check the health of your cervix with a pap smear. After three normal pap smears, your doctor will allow you to return to having exams once a year. If you have another abnormal pap smear, you may need closer follow up for longer or you may need additional treatment. By making a few lifestyle changes after the procedure, you can help protect the health of your cervix: - Have regular pelvic exams and pap smears as ordered by your doctor. - Stop smoking as smoking increases your risk of developing a cancer of the cervix - If you have more than one sexual partner, limit your number of partners and use condoms to reduce your risks of STDs. If you have any additional questions, please contact your doctor's office. Encounter Status:Closed by KIN PRITCHARD MD on 07/28/18 cytology on 2019-02-15 CYTOLOGY Specimen originated from [facility] Normal 02-15-2019 [place] Specimen #: [id number] Clinic Submitting Physician: DAVI MAR MD [place] SPECIMEN SUBMITTED ([id number]) A: CERVICAL, DIAGNOSTIC, FLUID FINAL DIAGNOSIS A. CERVICAL, DIAGNOSTIC, FLUID Satisfactory for interpretation. Negative for intraepithelial lesion or malignancy. Acute inflammation. This specimen has been analyzed by the ThinPrep Imaging System, an automated imaging and review system, which assists the laboratory in evaluating cells on ThinPrep Pap tests. Following automated imaging, selected lee from every slide are reviewed by a earth observations chief scientist. Toya Harrison M.D. (Electronic Signature) CLINICAL DATA ASCUS HPV POS, HPV Testing: Yes, Reflex HPV for ASCUS Date of Last Menstrual Period: STAINS A: CERVICAL, DIAGNOSTIC, FLUID THIN PREP COIL WINDER Date of Report: 02/23/2019 Date of Procedure: 02/15/2019 Date of Receipt: 02/17/2019 Submitted by: DAVI MAR MD Location: [facility] Diagnostic interpretation performed at [facility], [address] [place] [address]. CLIA Number: [id number] The Pap Smear is a screening test for cervical cancer. False negative results occur with all screening tests, emphasizing the need for rescreening at recommended intervals, and clinical correlation. progress on 2019-02-15 Protein mass conc HNO ID: [id number] Normal 02-15-2019 [facility] Author: Davi Felton [place] ([id number]) Service: ? Author Type: Physician Type: Progress Notes Filed: 02/15/2019 4:36 PM Note Text: VISIT David De La O is a 28 year old year old here for visit. Delivery Summary: Recovery: Feeding: Breast and bottle feeding problems: None Menses since delivery: not Resumed Menstrual pattern prior to : Regular periods [place] since delivery: Resumed Depression: denies symptoms of depression. See depression screening tab. Emotional support: Yes, Bowel symptoms: Negative for abdominal discomfort, blood in stools or black stools and change in bowel habits Bladder symptoms: No dysuria, gross hematuria, urinary frequency, urinary urgency, or incontinence Other issues: None Last Pap: 2018 abnormal, ascus HPV: positive PAST MEDICAL HISTORY Diagnosis Date - Atypical squamous cell changes of undetermined significance (ASCUS) on cervical cytology with positive high risk human papilloma virus (HPV) 07/28/2018 - Depression - past medical history 2010 normal color vision PAST SURGICAL HISTORY Procedure Laterality Date - NONE FAMILY HISTORY Problem Relation Age of Onset - Emphysema Mother - Diabetes Father - No Known Problems Sister - No Known Problems Sister - No Known Problems Brother - Heart Maternal Grandmother - No Known Problems Maternal Grandfather - Cancer Paternal Grandmother Lung - Heart Paternal Grandfather SOCIAL HISTORY Social History Socioeconomic History Marital status: Single Spouse name: Not on file Number of children: 0 Years of education: 12 Highest education level: Not on file Social Needs Financial resource strain: Not on file Food insecurity - worry: Not on file Food insecurity - inability: Not on file Transportation needs - medical: Not on file Transportation needs - non-medical: Not on file Occupational History Occupation: [employer] work Employer: [employer] Tobacco Use Smoking status: Former Smoker Packs/day: 0.50 Years: 5.00 Pack years: 2.5 Smokeless tobacco: Never Used Tobacco comment: Parents both smoke and patient smokes a couple of cigarettes a couple of times a week Substance and Sexual Activity Alcohol use: No Drug use: No Sexual activity: Yes Partners: Male control/protection: Injection Comment: Depo Provera Other Topics Concerns: Not on file Social History Narrative Not on file PHYSICAL EXAMINATION: BP 112/76 Wt 160 lb (72.6kg) LMP 04/21/2018 GENERAL: pleasant, female in no apparent distress HEENT: Normocephalic, atraumatic, mucus membranes moist and no lesions NECK: Supple, full range of motion, no adenopathy and thyroid normal DERMATOLOGY: Normal, without lesions, non-icteric and non-hirsute BREAST: soft, non-tender, symmetric, no dominant mass, normal nipple-areolar complex, no lymphadenopathy and no nipple discharge ABDOMEN: soft, non-tender and no masses. . PELVIC: external genitalia normal, normal Bartholin's glands, urethra, Old Stine's glands, no vulvar lesions, no cervical lesions, good vaginal support, physiologic discharge present, normal appearing perineal body and perianal region BIMANUAL: uterus normal size, shape and consistency, no adnexal masses and non-tender NEURO: alert and oriented x3,exam grossly non-focal EXTREMITIES: normal ASSESSMENT AND PLAN: 28 year old status post with normal course. Contraception plan: Depo Provera Continue Zoloft- doing well Pap done today Follow up: Pap smear done - will notify patient of results, RTC for annual exams and PRN, RTC for Depo-Provera injections Davi Mar MD cbc on 2018-07-23 Absolute nRBC <0.01 <0.01 Normal 07-23-2018 [facility] ([id number]) Comment: Performed By: #### CBC, RUBIGG, SYPHGX, HBSAG, HIV12C, SEQL1 ####[place] [address] [address] [place] [phone] Erythrocyte distribution 13.1 11.5-15.0 % Normal 07-23-2018 [facility] width Ratio (RBC) [place] ([id number]) Comment: Performed By: #### CBC, RUBIGG, SYPHGX, HBSAG, HIV12C, SEQL1 ####[place] [phone] Hematocrit Volume Fraction 34.0 36.0-46.0 % Low 07-23-2018 [facility] (Bld) ([id number]) Comment: Performed By: #### CBC, RUBIGG, SYPHGX, HBSAG, HIV12C, SEQL1 ####[address] [place] [phone] Hemoglobin mass conc (Bld) 11.1 11.5-15.5 g/dL Low 07-23-2018 [facility] ([id number]) Comment: Performed By: #### CBC, RUBIGG, SYPHGX, HBSAG, HIV12C, SEQL1 ####[place] [address] [address] [phone] MCH Entitic mass (RBC) 31.4 26.0-34.0 pG Normal 07-23-2018 [facility] ([id number]) Comment: Performed By: #### CBC, RUBIGG, SYPHGX, HBSAG, HIV12C, SEQL1 ####[place] [address] [address] [phone] MCHC mass conc (RBC) 32.6 30.5-36.0 g/dL Normal 07-23-2018 [facility] ([id number]) Comment: Performed By: #### CBC, RUBIGG, SYPHGX, HBSAG, HIV12C, SEQL1 ####[place] [address] [address] [phone] MCV Entitic volume 96.0 80.0-100.0 fL Normal 07-23-2018 [facility] (RBC) [place] ([id number]) Comment: Performed By: #### CBC, RUBIGG, SYPHGX, HBSAG, HIV12C, SEQL1 ####[place] [address] [address], [place] [phone] Platelet mean volume 11.6 9.0-12.7 fL Normal 07-23-2018 [facility] Entitic volume (Bld) [place] ([id number]) Comment: Performed By: #### CBC, RUBIGG, SYPHGX, HBSAG, HIV12C, SEQL1 ####[place] [address] [address], [place] [phone] Platelets #/vol (Bld) 245 150-400 k/uL Normal 07-23-2018 [facility] ([id number]) Comment: Performed By: #### CBC, RUBIGG, SYPHGX, HBSAG, HIV12C, SEQL1 ####[place] [address] [address] [place], [place] [phone] RBC #/vol (Bld) 3.54 3.90-5.20 m/uL Low 07-23-2018 [facility] ([id number]) Comment: Performed By: #### CBC, RUBIGG, SYPHGX, HBSAG, HIV12C, SEQL1 ####[place] [address] [address], [place] [phone] WBC #/vol (Bld) 9.92 3.70-11.00 k/uL Normal 07-23-2018 [facility] ([id number]) Comment: Performed By: #### CBC, RUBIGG, SYPHGX, HBSAG, HIV12C, SEQL1 ####[place] [id number], [place] [phone] cnnurse on 2019-01-26 [facility] Nurse Visit (WOOB) Normal 01-26-2019 [place] Arjun DAVID DE LA O ([id number]) 1990 [facility] Date Time Provider Department ([id number]) 01/26/19 4:00 PM NURSE PUBLIC SPEAKING COACH [facility] WSTR WOMICHELLE During your visit today, we recorded the following information about you: Weight 72 kg Kevin Whitten LPN 01/26/2019 4:20 PM Signed Patient identified by name and date of . David De La O is here for a Depo Provera injection. Patient brought medication. Date last injected: first injection - negative test. Depo-Provera, 150 mg, administered IM right upper quadrant gluteus, Lot # [id number], expiration date 10/09/22. Depo-Provera was given without incident. Date of last menses: No LMP recorded. Patient is not currently having periods (Reason: ). Irregular bleeding - No Menses ceased - Yes STD prevention discussed: Yes Patient instructed to return to clinic on 12 weeks +/- 5 dats. [email or web address] Provider Earnest Hare was present in office at time of injection. Kevin Whitten LPN Referring Provider: SELF [200] Allergies As of Date: 01/26/2019 Noted Allergy Reaction environmental [Other] 03/23/2007 Comments: seasonal allergies Date Reviewed: 01/26/2019 Reviewed by: Kevin Whitten LPN - Fully Assessed Reason for Visit: Nurse Visit [792] Cmt: depo Primary Visit Diagnosis:Pre-procedure lab exam [Z01.812] Order(s):HCG QUAL UR B/O [[id number]] Order #: [id number] Prescriptions as of 01/26/2019 Sig: MEDROXYPROGESTERONE 150 MG/ML* Inject 1 mL intramuscularly e* PROMETHAZINE 25 MG TABLET Take 1 tablet by mouth every * Patient not taking: Reported on 01/26/2019 SERTRALINE 50 MG TABLET Take 1 tablet by mouth once d* VITAMIN,CALCIUM,MINE* Take 1 tablet by mouth. PYRIDOXINE (VITAMIN B6) 100 M* Take 100 mg by mouth once sanchez* Problem List As Of Date 01/26/2019 Noted Resolved Pain in Joint, Lower Leg [M25.569] INVALID FOR*02/01/2010 Cystic acne [L70.0] INVALID FOR* Bleeding in early [O20.9] INVALID FOR* More... History of depression [Z86.59] INVALID FOR* More... Nausea and vomiting during [O21.9] INVALID FOR* More... Tobacco use during , antepartum [O99.3*INVALID FOR* More... Patient requested diagnostic testing [Z01.89] INVALID FOR* More... Atypical squamous cell changes of undetermined *INVALID FOR* More... Club foot of fetus affecting antepartum care of*INVALID FOR* More... Positive GBS test [B95.1] INVALID FOR* Encounter Status:Closed by KEVIN WHITTEN LPN on 01/26/19 progress on 2019-01-26 Protein HNO ID: [id number] Normal 01-26-2019 [facility] Author: Kevin Whitten LPN Clinic conc Service: ? [place] Author Type: ? ([id number]) Type: Progress Notes Filed: 01/26/2019 4:20 PM Note Text: Patient identified by name and date of . David De La O is here for a Depo Provera injection. Patient brought medication. Date last injected: first injection - negative test. Depo-Provera, 150 mg, administered IM right upper quadrant gluteus, Lot # [id number], expiration date 10/09/22. Depo-Provera was given without incident. Date of last menses: No LMP recorded. Patient is not currently having periods (Reason: ). Irregular bleeding - No Menses ceased - Yes STD prevention discussed: Yes Patient instructed to return to clinic on 12 weeks +/- 5 dats. [email or web address] Provider Earnest Hare was present in office at time of injection. Kevin Whitten LPN hepatitis b surf. ag on 2018-07-23 Hepatitis B Surf. Ag Negative Negative Normal 07-23-2018 [facility] ([id number]) Comment: Performed By: #### CBC, RUBIGG, SYPHGX, HBSAG, HIV12C, SEQL1 ####[facility] [id number] [place], [place] [phone] progress on 2019-01-12 Protein mass conc HNO ID: [id number] Normal 01-12-2019 [facility] Author: Kevin Whitten LPN [place] ([id number]) Service: ? Author Type: ? Type: Progress Notes Filed: 01/12/2019 9:54 AM Note Text: Pt delivered via at [facility] on 01/08/[address] Felton. See OB Outcome note. Kevin Whitten LPN progress on 2019-01-15 Protein mass conc HNO ID: [id number] Normal 01-15-2019 [facility] Author: Alexandra Vasquez RN [place] ([id number]) Service: ? Author Type: ? Type: Progress Notes Filed: 01/15/2019 9:39 AM Note Text: Patient her for BP check. Had 01/08/19 with pre-eclampsia. Patient denies any headache, vision changes or RUQ pain at this time. Not on any BP medication at this time. States her BP readings have been around 140/[address] Pritchard notified of patient update and BP readings in office today. To have patient send [employer] message to DM next week with daily BP readings and to call office if they are trending up or she develops any of the above listed symptoms. Patient notified and agreed. Alexandra Vasquez [facility] (WOOB[facility] Normal 01-15-2019 [place] DAVID Moura ([id number]) 1990 [facility] Date Time Provider Department ([id number]) 01/15/19 9:00 AM NURSE PUBLIC SPEAKING COACH [facility] WSTR WOOB During your visit today, we recorded the following information about you: Blood pressure Weight 130/90 74.2 kg Alexandra Vasquez RN 01/15/2019 9:39 AM Signed Patient her for BP check. Had 01/08/19 with pre-eclampsia. Patient denies any headache, vision changes or RUQ pain at this time. Not on any BP medication at this time. States her BP readings have been around 140/[address] Pritchard notified of patient update and BP readings in office today. To have patient send [employer] message to DM next week with daily BP readings and to call office if they are trending up or she develops any of the above listed symptoms. Patient notified and agreed. Alexandra Vasquez RN Referring Provider: SELF [200] Allergies As of Date: 01/15/2019 Noted Allergy Reaction environmental [Other] 03/23/2007 Comments: seasonal allergies Date Reviewed: 01/15/2019 Reviewed by: Alexandra Vasquez RN - Fully Assessed Reason for Visit: BP Check [142] Primary Visit Diagnosis:BP check [Z01.30] Prescriptions as of 01/15/2019 Sig: SERTRALINE 50 MG TABLET Take 1 tablet by mouth once d* VITAMIN,CALCIUM,MINE* Take 1 tablet by mouth. PYRIDOXINE (VITAMIN B6) 100 M* Take 100 mg by mouth once sanchez* PROMETHAZINE 25 MG TABLET Take 1 tablet by mouth every * Problem List As Of Date 01/15/2019 Noted Resolved Pain in Joint, Lower Leg [M25.569] INVALID FOR*02/01/2010 Cystic acne [L70.0] INVALID FOR* Bleeding in early [O20.9] INVALID FOR* More... History of depression [Z86.59] INVALID FOR* More... Nausea and vomiting during [O21.9] INVALID FOR* More... Tobacco use during , antepartum [O99.3*INVALID FOR* More... Patient requested diagnostic testing [Z01.89] INVALID FOR* More... Atypical squamous cell changes of undetermined *INVALID FOR* More... Club foot of fetus affecting antepartum care of*INVALID FOR* More... Positive GBS test [B95.1] INVALID FOR* Encounter Status:Closed by ALEXANDRA VASQUEZ RN on 01/15/19 rubella igg antibody on 2018-07-23 Rubella IgG Ab 2.72 Index Value Normal 07-23-2018 [facility] ([id number]) Comment: Result Comment: Index values are interpreted as follows: Negative specimens <0.90 Equivocol specimens 0.90 to 0.99 Positive specimens >0.99 The magnitude of the measured result is not indicative of the amount of antibody present. Performed By: #### CBC, RUBIGG, SYPHGX, HBSAG, HIV12C, SEQL1 ####[address], [place] [phone] Rubella IgG Ab, Positive Negative Critically abnormal 07-23-2018 [facility] ([id number]) Comment: Result Comment: Sample is considered positive for IgG antibodies to rubella virus. A positive result indicates previous exposure to Rubella virus or vaccination. Performed By: #### CBC, RUBIGG, SYPHGX, HBSAG, HIV12C, SEQL1 ####[address] [place], [place] [phone] protein/creatinine ratio on 2019-01-05 Creatinine,Urine,Ran 44.0 20-300 mg/dL Normal 01-05-2019 [facility] ([id number]) Comment: Performed By: #### STACIE ####[address] [phone] Protein mass conc (U) 11 0-20 mg/dL Normal 01-05-2019 [facility] ([id number]) Comment: Performed By: #### PRALUCYO ####[place] [address], [place] [phone] Protein/Creatinine Ratio 0.3 <0.2 High 01-05-2019 [facility] ([id number]) Comment: Performed By: #### LIONELO ####[place] [address] [place], [place] [phone] uric acid on 2019-01-05 Urate mass conc 3.4 2.5-6.6 mg/dL Normal 01-05-2019 [facility] ([id number]) Comment: Performed By: #### CBC, CMP, URIC ####[facility] [address] [place], [place] [phone] progress on 2019-01-07 Protein mass HNO ID: [id number] Normal 01-07-2019 [facility] conc Author: Alcira Guillaume) Fuad Goldstein ([id number]) Service: (none) Author Type: Cut Order Hand Type: Progress Notes Filed: 01/07/2019 7:42 PM Note Text: CM - S: David De La O presents for BP check visit at 37w2d. She denies LOF, VB, DFM or cramping/contractions. Patient came straight from work to make this appointment, reports she has not drank much fluid today. Patient reports mild CODY but denies scotoma or RUQ pain. She was scheduled to start 24 hour urine, but she hasn't started it yet. O: See flow sheet - BPs are elevated 140-150s/90-100s. Patient unable to leave a urine sample today. Gen: A+O x 3, NAD Abdomen: NT x 4 quadrants, S=D, Gravid Extremities: +1/+1 pitting edema in LE. +2/4 reflexes in LE, no clonus noted. SVE = 1/70/-2, + bloody show noted after exam A/P: 37w2d IUP. Gestational Hypertension vs. Pre-Eclampsia. RTO PRN Weeks for follow up. Call with LOF, VB, DFM or cramping/contractions. 1. 37 weeks gestation of - URINE OB DIP B/O 2. Gestational Hypertension -Consultation with Dr. Pritchard, plan to progress with IOL at this time as patient meets criteria. Will also plan to do a work-up to r/o pre-eclampsia at hospital. Consents signed with patient and partner, patient sent directed to labor and delivery. Alcira Merida, MARJORIE.PABLOM syphilis igg with conf on 2018-07-23 Syphilis IgG <0.2 Normal 07-23-2018 [facility] ([id number]) Comment: Result Comment: Antibody index is interpreted as follows: Non reactive SPECIMENS <=0.8 Weak reactive SPECIMENS 0.9 to 5.9 Reactive SPECIMENS >=6.0 Performed By: #### CBC, RUBIGG, SYPHGX, HBSAG, HIV12C, SEQL1 ####[facility] [address] [place], [place] [phone] Syphilis IgG, Qual Nonreactive Nonreactive Normal 07-23-2018 [facility] ([id number]) Comment: Result Comment: No serological evidence of infection with T. pallidum. Performed By: #### CBC, RUBIGG, SYPHGX, HBSAG, HIV12C, SEQL1 ####[facility] [address] [place], [place] [phone] progress on 2018-11-04 Protein mass HNO ID: [id number] Normal 11-04-2018 [facility] Author: Alcira Guillaume) Fuad [place] ([id number]) Service: (none) Author Type: Cut Order Hand Type: Progress Notes Filed: 11/04/2018 8:32 PM Note Text: CM - S: David De La O presents for a routine OB visit at 28w1d. She denies LOF, VB, DFM or cramping/contractions. Still taking phenergan medication for nausea - once a day and only a few times a week. Patient requests a refill of this medication today. SBIRT done - negative screen. 1 hour GCT and CBC drawn. Patient continues to smoke cigarettes 1/2 ppd, had decreased but with the holidays she started again. LARC discussed - patient and partner unsure at this time. Depression Screening - low risk. Still taking Zoloft 50mg PO as prescribed. O: See flow sheet A/P: 28w1d IUP. Nausea/Vomiting of , Tobacco Use during . RTO 2 Weeks for follow up. Call with LOF, VB, DFM or cramping/contractions. 1. 28 weeks gestation of -C teaching reviewed -PTL precuations reviewed -Screening for GDM and Anemia today -Patient desires to talk with partner re: LARC - readdress LARC at n.v. - URINE OB DIP B/O - CBC + DIFF; Future - GEST GLUC SCREEN, 1-HR, 50 GM, NON-FASTING; Future 2. Nausea and vomiting in -Refill for Phenergan as requested, Phenergan 25mg PO #20disp with 1 RF - promethazine (PHENERGAN) 25 mg tablet; Take 1 tablet by mouth every 6 hours as needed. TAKE ONE TABLET EVERY 6 HOURS PRN Dispense: 20 tablet; Refill: 1 3. Supervision of normal first , antepartum Alcira Merida APRN.CNM SBIRT David De La O was given the 4P's screening tool. David answered as follows: OB Opioid Screening - Last Recorded (since 02/07/2018) Did any of your parents have a problem with alcohol or other drug use? No Does your partner have a problem with alcohol or other drug use? No In the past, have you had difficulties in your life because of alcohol or other drugs, including prescription medications? No In the past month have you drunk any alcohol or used other drugs? No Are you taking medication for pain during the either prescribed or not? No Based on the screen and further questions, she is considered at Low risk due to:No past or current use. Positive reinforcement of current behavior. Alcira Merida APRN.OCTAVIA group b strep pcr on 2018-12-31 GROUP B STREP Positive for Group B Critically 12-31-2018 [facility] PCR Streptococcus by PCR. bubba [place] ([id number]) If susceptibility testing is needed and was not requested with initial test order, call lab ([phone]) within 5 days to initiate workup. Comment: Performed By: #### GBPCR ####[facility] [address] [place], [place] [phone] progress on 2018-12-16 Protein mass conc HNO ID: [id number] Normal 12-16-2018 [facility] Author: Corina Gaming) Ro Goldstein ([id number]) Service: (none) Author Type: Non Clinical Advisor Type: Progress Notes Filed: 12/16/2018 5:20 PM Note Text: Patient identified by name and date of . David De La O presents today for a vaccination of Tdap. Patient denies an allergy to latex: yes Patient denies a severe (life-threatening) allergy to a previous dose of Tdap, DTP, DTaP, DT or Td vaccine. Yes Patient denies history of epilepsy or neurological problems: Yes Patient is afebrile and denies being moderately or severely ill: Yes Patient denies history of Guillain-[place] Syndrome (a severe paralytic illness): Yes Tdap Adacel injection was given without incident. See immunizations for details of immunizations administered today. VIS sheet provided: Yes Provider Earnest Hare Do was present in office at time of injection. Corina Starr MA cbc on 2019-01-05 Absolute nRBC <0.01 <0.01 Normal 01-05-2019 [facility] ([id number]) Comment: Performed By: #### CBC, CMP, URIC ####[place] [phone] Erythrocyte distribution 13.0 11.5-15.0 % Normal 01-05-2019 [facility] width Ratio (RBC) [place] ([id number]) Comment: Performed By: #### CBC, CMP, URIC ####[place] [phone] Hematocrit Volume Fraction 36.9 36.0-46.0 % Normal 01-05-2019 [facility] ([facility] ([id number]) Comment: Performed By: #### CBC, CMP, URIC ####[place] [phone] Hemoglobin mass conc 12.1 11.5-15.5 g/dL Normal 01-05-2019 [facility] ([facility] ([id number]) Comment: Performed By: #### CBC, CMP, URIC ####[place] [phone] MCH Entitic mass (RBC) 29.7 26.0-34.0 pG Normal 01-05-2019 [facility] ([id number]) Comment: Performed By: #### CBC, CMP, URIC ####[place] [phone] MCHC mass conc (RBC) 32.8 30.5-36.0 g/dL Normal 01-05-2019 [facility] ([id number]) Comment: Performed By: #### CBC, CMP, URIC ####[place] [address] [place], [place] [phone] MCV Entitic volume 90.7 80.0-100.0 fL Normal 01-05-2019 [facility] (RBC) [place] ([id number]) Comment: Performed By: #### CBC, CMP, URIC ####[place] [address] [phone] Platelet mean volume 12.4 9.0-12.7 fL Normal 01-05-2019 [facility] Entitic volume (Bld) [place] ([id number]) Comment: Performed By: #### CBC, CMP, URIC ####[place] [address], [place] [phone] Platelets #/vol (Bld) 246 150-400 k/uL Normal 01-05-2019 [facility] ([id number]) Comment: Performed By: #### CBC, CMP, URIC ####[place] [address], [place] [phone] RBC #/vol (Bld) 4.07 3.90-5.20 m/uL Normal 01-05-2019 [facility] ([id number]) Comment: Performed By: #### CBC, CMP, URIC ####[place] [address], [place] [phone] WBC #/vol (Bld) 13.35 3.70-11.00 k/uL High 01-05-2019 [facility] ([id number]) Comment: Performed By: #### CBC, CMP, URIC ####[place] [address], [place] [phone] comp metabolic panel on 2019-01-05 Albumin mass conc 3.4 3.9-4.9 g/dL Low 01-05-2019 [facility] ([id number]) Comment: Performed By: #### CBC, CMP, URIC ####[place] [address] [place] [phone] ALP enzyme act/vol 160 34-123 U/L High 01-05-2019 [facility] ([id number]) Comment: Performed By: #### CBC, CMP, URIC ####[place] [address] [place] [phone] ALT enzyme act/vol 17 7-38 U/L Normal 01-05-2019 [facility] ([id number]) Comment: Performed By: #### CBC, CMP, URIC ####[place] [address] [place] [phone] Anion gap molar conc 13 9-18 mmol/L Normal 01-05-2019 [facility] ([id number]) Comment: Performed By: #### CBC, CMP, URIC ####[place] [phone] AST enzyme act/vol 28 13-35 U/L Normal 01-05-2019 [facility] ([id number]) Comment: Performed By: #### CBC, CMP, URIC ####[place] [phone] Bilirubin mass conc 0.2 0.2-1.3 mg/dL Normal 01-05-2019 [facility] ([id number]) Comment: Performed By: #### CBC, CMP, URIC ####[place] [phone] Calcium mass conc 9.0 8.5-10.2 mg/dL Normal 01-05-2019 [facility] ([id number]) Comment: Performed By: #### CBC, CMP, URIC ####[place] [phone] Chloride molar conc 103 97-105 mmol/L Normal 01-05-2019 [facility] ([id number]) Comment: Performed By: #### CBC, CMP, URIC ####[place] [address] [place] [phone] CO2 molar conc 20 22-30 mmol/L Low 01-05-2019 [facility] ([id number]) Comment: Performed By: #### CBC, CMP, URIC ####[facility] [place], [place] [phone] Creatinine mass conc 0.74 0.58-0.96 mg/dL Normal 01-05-2019 [facility] ([id number]) Comment: Performed By: #### CBC, CMP, URIC ####[facility] [address] [place] [phone] eGFR- Amer. >60 Normal 01-05-2019 [facility] ([id number]) Comment: Performed By: #### CBC, CMP, URIC ####[address] [phone] GFR/1.73 sq M predicted >60 mL/min/{1.73_m2} Normal 01-05-2019 [facility] among non-blacks [facility] ([id number]) vol rate/area (S/P/Bld) Comment: Result Comment: eGFR (Estimated GFR) Units of measure: mL/min/1.73 meters squared eGFR is derived from the reexpressed MDRD Study equation using the following parameters: serum creatinine, age, gender and race. The creatinine assay has been calibrated to be traceable to IDMS. An eGFR <60 mL/min/1.73m2 for >3 months is consistent with chronic kidney disease. Refer to KDOQI guidelines for clinical interpretation. In patients with unstable renal function, e.g. those with acute kidney injury, the eGFR may not accurately reflect actual GFR. Performed By: #### CBC, CMP, URIC ####[place] [phone] Glucose mass conc 91 74-99 mg/dL Normal 01-05-2019 [facility] ([id number]) Comment: Result Comment: The [place] Diabetes Association (ADA) provides guidance for cutoff values for fasting glucose and random glucose. The ADA defines fasting as no caloric intake for at least 8 hours. Fas ting plasma glucose results between 100 to 125 mg/dL indicate increased risk for diabetes (prediabetes). Fasting plasma glucose results greater than or equal to 126 mg/dL meet the criteria for diagnosis of diabetes. In the absence of unequivocal hyperglycemia, results should be confirmed by repeat testing. In a patient with classic symptoms of hyperglycemia or hyperglycemic crisis, random plasma glucose results greater than or equal to 200 mg/dL meet the criteria for diagnosis of diabetes. Reference: Standards of Medical Care in Diabetes 2016, [place] Diabetes Association. Diabetes Care. 2016.39(Suppl 1). Performed By: #### CBC, CMP, URIC ####[place] [address], [place] [phone] Potassium molar conc 3.9 3.7-5.1 mmol/L Normal 01-05-2019 [facility] ([id number]) Comment: Performed By: #### CBC, CMP, URIC ####[address] [place], [place] [phone] Protein mass conc 6.2 6.3-8.0 g/dL Low 01-05-2019 [facility] ([id number]) Comment: Performed By: #### CBC, CMP, URIC ####[address] [place] [phone] Sodium molar conc 136 136-144 mmol/L Normal 01-05-2019 [facility] ([id number]) Comment: Performed By: #### CBC, CMP, URIC ####[place] [address] [place], [place] [phone] Urea nitrogen mass conc 7 7-21 mg/dL Normal 01-05-2019 [facility] ([id number]) Comment: Performed By: #### CBC, CMP, URIC ####[place] [address] [phone] cytology on 2018-06-26 CYTOLOGY [facility] [place] 06-26-2018 [place] ADDITIONAL PROCEDURES PRESENT abnormal Clinic [place] ---Abnormal Pap Test - Epithelial Cell Abnormality--- ([id number]) Specimen originated from [facility] Specimen #: [id number] Submitting Physician: DAVI FELTON MD SPECIMEN SUBMITTED A: CERVICAL, SCREENING, FLUID FINAL DIAGNOSIS A. CERVICAL, SCREENING, FLUID Satisfactory for interpretation. Epithelial cell abnormality. Atypical squamous cells of undetermined significance (ASC-US). This specimen has been analyzed by the ThinPrep Imaging System, an automated imaging and review system, which assists the laboratory in evaluating cells on ThinPrep Pap tests. Following automated imaging, selected lee from every slide are reviewed by a earth observations chief scientist. Johny Wynne M.D. (Electronic Signature) ADDITIONAL PROCEDURE(S) HUMAN PAPILLOMA VIRUS Date Ordered: 07/08/2018 Date Reported: 07/11/2018 Procedure Results and Interpretation Negative for HPV DNA high risk type 16 by PCR. Negative for HPV DNA high risk type 18 by PCR. Positive for one or more of the following HPV DNA high risk types: 31,33,35,39,45,51,52,56,58,59,66,68 by PCR(*) This test was developed and its performance characteristics determined by [facility]'s [facility] [place] ([facility]). It has not been cleared or approved by the FDA. [facility] is regulated under CLIA as qualified to perform high-complexity testing. This test is used for clinical purposes. It should not be regarded as investigational or for research. CLINICAL DATA ROUTINE EXAM, HPV Testing: Yes, Reflex HPV for ASCUS Date of Last Menstrual Period: 04/21/18 Menstrual History: STAINS A: CERVICAL, SCREENING, FLUID THIN PREP COIL WINDER Date of Report: 07/08/2018 Date of Procedure: 06/26/2018 Date of Receipt: 06/29/2018 Submitted by: DAVI FELTON MD Location: [facility] Diagnostic interpretation performed at [facility], [address] [place] [address]. The Pap Smear is a screening test for cervical cancer. False negative results occur with all screening tests, emphasizing the need for rescreening at recommended intervals, and clinical correlation. progress on 2018-07-28 Protein mass conc HNO ID: [id number] Normal 07-28-2018 [facility] Author: Kin Goldstein ([id number]) Service: (none) Author Type: Physician Type: Progress Notes Filed: 07/28/2018 3:58 PM Note Text: David De La O is a 27 year old female who presents today for a colposcopy. Her last pap smear was ASCUS with positive HPV from June 2018. Patient has a history of abnormal pap: No. She has had prior treatment: none. test: n/a, patient is UNIVERSAL PROTOCOL / SAFETY CHECKLIST Procedure to be performed: Colposcopy with possible biopsy Sign in Communication: Completed Time Out: Team Confirms the Correct Patient, Correct Procedure, Correct Site and Site Marking, Correct Position (if applicable), Prep and Dry Time (if applicable). Time: 15:47 Affirmation of Time Out: YES Sign Out Discussion: Completed PROCEDURE: EXTERNAL GENITALIA: Normal in appearance without lesions VAGINA: Normal in appearance without lesions CERVIX: Speculum placed in vagina and excellent visualization of cervix achieved. Cervix swabbed x 3 with 3% acetic acid solution. Cervix grossly normal. Squamocolumnar junction visualized. acetowhite changes noted diffusely. BIOPSY: Not done. ECC: not done HEMOSTASIS: Obtained with n/a Procedure Summary: Patient tolerated procedure well. ASSESSMENT: mild dysplasia PLAN: Plan for repeat pap PP AND then colpo if abnormal. Kin Pritchard MD sequent scrn second ccf patients only on 2018-08-20 HCG Qn 0.77 MoM Normal 08-20-2018 [facility] ([id number]) Comment: Performed By: #### URCUL #### [facility] [employer] [address] [place] [phone] HCG Qn 0.67 MoM Normal 08-20-2018 [facility] ([id number]) Comment: Performed By: #### URCUL #### [facility] [employer] [address] [place] [phone] SE1 VERENICE A 1.30 MoM Normal 08-20-2018 [facility] ([id number]) Comment: Performed By: #### URCUL #### [facility] [employer] [address] [place] [phone] SE2 AFP 0.91 MoM Normal 08-20-2018 [facility] ([id number]) Comment: Performed By: #### URCUL #### [facility] [employer] [address] [place] [phone] SE2 Age Rsk Dn Snyd 1:990 Normal 08-20-2018 [facility] ([id number]) Comment: Performed By: #### URCUL #### [facility] [employer] [address] [place] [phone] SE2 Dimrc Inhibin A 1.53 MoM Normal 08-20-2018 [facility] ([id number]) Comment: Performed By: #### URCUL #### [facility] [employer] [address] [phone] SE2 Interp Screen Negative Screen Negative Normal 08-20-2018 [facility] ([id number]) Comment: Performed By: #### URCUL #### [facility] [employer] [address] [phone] SE2 Scr Rsk ONTD 1:7900 Normal 08-20-2018 [facility] ([id number]) Comment: Performed By: #### URCUL #### [facility] [address] [place] [phone] SE2 Scr Rsk Trsmy 13 <1:01194 Normal 08-20-2018 [facility] ([id number]) Comment: Performed By: #### URCUL #### [facility] [address] [place] [phone] SE2 Scr Rsk Trsmy18 <1:50140 Normal 08-20-2018 [facility] ([id number]) Comment: Performed By: #### URCUL #### [facility] [address] [place] [phone] SE2 Scrn Rsk Dn Synd <1:10815 Normal 08-20-2018 [facility] ([id number]) Comment: Performed By: #### URCUL #### [facility] [address] [place] [phone] SE2 Unconj uE3 1.54 MoM Normal 08-20-2018 [facility] ([id number]) Comment: Performed By: #### URCUL #### [facility] [address] [place] [phone] Seq Scrn Second View results in Scanned Normal 08-20-2018 [facility] Trim Documents link when [place] () available. Comment: Performed By: #### URCUL #### [place] [address] [place] [phone] SEQ Staff Review Reviewed by Teddy Normal 08-20-2018 [facility] MD Eliceo, PhD [place] ([id number]) ([id number]) Comment: Performed By: #### URCUL #### [facility] [address] [place] [phone] progress on 2018-09-03 Protein mass conc HNO ID: [id number] Normal 09-03-2018 [facility] Author: Mel Grewal [place] ([id number]) Service: (none) Author Type: Physician Type: Progress Notes Filed: 09/03/2018 4:04 PM Note Text: Please see ultrasound report for details of this visit. Mel Grewal M.D. progress on 2018-09-30 Protein mass conc HNO ID: [id number] Normal 09-30-2018 [facility] Author: Blair Martinez [place] ([id number]) Service: (none) Author Type: Physician Type: Progress Notes Filed: 09/30/2018 4:07 PM Note Text: A carl intrauterine has been noted. The heart rate is regular without dysrhythmias and falls within the normal range for gestational age. Estimated Date of Delivery: 01/26/19 EGA = 23w1d AGA There is no ultrasonographic evidence of clubbing of either foot There is no evidence of hydrops. The amniotic fluid volume is in the normal range. The placenta is fundal. The limitations of ultrasound in detecting malformations and chromosomal anomalies has been addressed. Body mass index is 25.66 kg/m?. RECOMMENDATIONS: - Follow up ultrasound as clinically indicated 50g, 1hr gest. gscrn on 2018-11-04 Glucose mass conc 92 74-134 mg/dL Normal 11-04-2018 [facility] ([id number]) Comment: Result Comment: [place] [employer] of [employer]stetricians and Gynec[employer] ([place]/Sierra) guidelines state a gestational diabetes mellitus positive screen is made, in women not previously diagnosed with overt diabetes, when the 1 hr plasma glucose level is equal to or above 140 mg/dL. The [facility] Family Consumer Science Teacher [facility] [place] recommends a 135 mg/dL cutoff. Performed By: #### URCUL #### [facility] [address] [place] [id number] cbc and differential on 2018-11-04 Abs Baso 0.05 <0.11 k/uL Normal 11-04-2018 [facility] ([id number]) Comment: Performed By: #### URCUL #### [facility] [address] [place], [place] [address] Abs [place] 0.99 <0.87 k/uL High 11-04-2018 [facility] ([id number]) Comment: Performed By: #### URCUL #### [facility] [employer] [address] [place] [phone] Abs Neut 10.10 1.45-7.50 k/uL High 11-04-2018 [facility] ([id number]) Comment: Performed By: #### URCUL #### [facility] [employer] [facility] [place] [phone] Absolute nRBC <0.01 <0.01 Normal 11-04-2018 [facility] ([id number]) Comment: Performed By: #### URCUL #### [facility] [employer] [facility] [phone] Basophils/100 WBC (Bld) 0.4 % Normal 11-04-2018 [facility] ([id number]) Comment: Performed By: #### URCUL #### [facility] [employer] [address] [place], [place] [phone] DTYPE Auto Diff Normal 11-04-2018 [facility] ([id number]) Comment: Performed By: #### URCUL #### [facility] [employer] [facility] [phone] Eosinophils #/vol (Bld) 0.32 <0.46 k/uL Normal 11-04-2018 [facility] ([id number]) Comment: Performed By: #### URCUL #### [place] [id number] [phone] Eosinophils/100 WBC (Bld) 2.3 % Normal 11-04-2018 [facility] ([id number]) Comment: Performed By: #### URCUL #### [facility] [employer] [facility] [place] [phone] Erythrocyte distribution 12.1 11.5-15.0 % Normal 11-04-2018 [facility] width Ratio (RBC) [place] ([id number]) Comment: Performed By: #### URCUL #### [facility] [employer] [facility] [place] [phone] Hematocrit Volume Fraction 32.7 36.0-46.0 % Low 11-04-2018 [facility] (Bld) ([id number]) Comment: Performed By: #### URCUL #### [place] [phone] Hemoglobin mass conc (Bld) 11.0 11.5-15.5 g/dL Low 11-04-2018 [facility] ([id number]) Comment: Performed By: #### URCUL #### [phone] Lymphocytes #/vol (Bld) 2.58 1.00-4.00 k/uL Normal 11-04-2018 [facility] ([id number]) Comment: Performed By: #### URCUL #### [place] [phone] Lymphocytes/100 WBC (Bld) 18.4 % Normal 11-04-2018 [facility] ([id number]) Comment: Performed By: #### URCUL #### [phone] MCH Entitic mass (RBC) 30.0 26.0-34.0 pG Normal 11-04-2018 [facility] ([id number]) Comment: Performed By: #### URCUL #### [place] [phone] MCHC mass conc (RBC) 33.6 30.5-36.0 g/dL Normal 11-04-2018 [facility] ([id number]) Comment: Performed By: #### URCUL #### [place] [phone] MCV Entitic volume 89.1 80.0-100.0 fL Normal 11-04-2018 [facility] (RBC) [place] ([id number]) Comment: Performed By: #### URCUL #### [address], [place] [address] Monocytes/100 WBC (Bld) 7.1 % Normal 11-04-2018 [facility] ([id number]) Comment: Performed By: #### URCUL #### [place] [address] Neutrophils/100 WBC (Bld) 71.8 % Normal 11-04-2018 [facility] ([id number]) Comment: Performed By: #### URCUL #### [place] [address] NRBCs 0.0 0 /100 WBC Normal 11-04-2018 [facility] ([id number]) Comment: Performed By: #### URCUL #### [place] [address] Platelet mean volume 11.0 9.0-12.7 fL Normal 11-04-2018 [facility] Entitic volume (Bld) [place] ([id number]) Comment: Performed By: #### URCUL #### [place] [address] Platelets #/vol (Bld) 284 150-400 k/uL Normal 11-04-2018 [facility] ([id number]) Comment: Performed By: #### URCUL #### [place] [address] RBC #/vol (Bld) 3.67 3.90-5.20 m/uL Low 11-04-2018 [facility] ([id number]) Comment: Performed By: #### URCUL #### [place] [address] WBC #/vol (Bld) 14.04 3.70-11.00 k/uL High 11-04-2018 [facility] ([id number]) Comment: Performed By: #### URCUL #### [address] [phone] urine culture on 2018-06-26 Bacteria identified Sp. Request/Comment: - Best Practice Alert: To ensure optimal transport conditions and accurate culture results transfer urine specimens to rader top C and S preservative tube. Normal 06-26-2018 [facility] Cx Nom (U) [place] ([id number]) Culture Result - <10,000 CFU/ml Normal urogenital joseluis Comment: Performed By: #### URCUL #### [facility] [address] [place] [address] sequent scrn first [facility] patients only on 2018-07-23 HCG Qn 0.73 MoM Normal 07-23-2018 [facility] ([id number]) Comment: Performed By: #### CBC, RUBIGG, SYPHGX, HBSAG, HIV12C, SEQL1 ####[place] [id number] [place] [phone] SE1 Age Rsk Dn Synd 1:730 Normal 07-23-2018 [facility] ([id number]) Comment: Performed By: #### CBC, RUBIGG, SYPHGX, HBSAG, HIV12C, SEQL1 ####[facility] [place] [phone] SE1 Age Rsk Trsmy18 1:2400 Normal 07-23-2018 [facility] ([id number]) Comment: Performed By: #### CBC, RUBIGG, SYPHGX, HBSAG, HIV12C, SEQL1 ####[facility], [place] [phone] SE1 Interp Final result Final result Normal 07-23-2018 [facility] pending second pending second [place] ([id number]) trimester sample trimester sample Comment: Performed By: #### CBC, RUBIGG, SYPHGX, HBSAG, HIV12C, SEQL1 ####[facility], [place] [phone] SE1 VERENICE A 1.17 MoM Normal 07-23-2018 [facility] ([id number]) Comment: Performed By: #### CBC, RUBIGG, SYPHGX, HBSAG, HIV12C, SEQL1 ####[facility], [place] [phone] SE1 Scr Rsk Trsmy18 <1:28220 Normal 07-23-2018 [facility] ([id number]) Comment: Performed By: #### CBC, RUBIGG, SYPHGX, HBSAG, HIV12C, SEQL1 ####[facility], [place] [phone] SE1 Scrn Rsk Dn Synd <1:91975 Normal 07-23-2018 [facility] ([id number]) Comment: Performed By: #### CBC, RUBIGG, SYPHGX, HBSAG, HIV12C, SEQL1 ####[facility], [place] [phone] Seq Scrn First View results in Scanned Normal 07-23-2018 [facility] Trim Documents link when [place] ([id number]) available. Comment: Performed By: #### CBC, RUBIGG, SYPHGX, HBSAG, HIV12C, SEQL1 ####[facility], [place] [phone] SEQ Staff Review Reviewed by Teddy Normal 07-23-2018 [facility] MD Eliceo, PhD [place] ([id number]) ([id number]) Comment: Performed By: #### CBC, RUBIGG, SYPHGX, HBSAG, HIV12C, SEQL1 ####[facility], [place] [phone] type and scr,prenatl on 2018-07-23 ABO/RH(D) O POSITIVE Normal 07-23-2018 [facility] ([id number]) Comment: Performed By: #### URCUL #### [facility] [address] [place], [place] [phone] progress on 2018-07-24 Protein mass conc HNO ID: [id number] Normal 07-24-2018 [facility] Author: Blair Martinez [place] ([id number]) Service: (none) Author Type: Physician Type: Progress Notes Filed: 07/24/2018 12:45 PM Note Text: A single intrauterine gestational sac is noted with a regular outline. There is no decidual hemorrhage. The yolk sac is visualized and shows normal shape and echogenicity. A living single fetus is noted. The heart rate is within normal range. The CRL corresponds to the gestational age. Estimated Date of Delivery: 01/26/19 EGA = 13w3d Negative NT screen for Trisomy 21. The sensitivity of nuchal translucency measurement for Trisomy 21 is ~60%. The anatomy appears normal in the areas visualized. RECOMMENDATIONS: - The patient requested the sequential screening. The test has been ordered - Ultrasound examination at 18 to 20 weeks cnnurse on 2018-06-18 CNNURSE Nurse Visit (WOOB) Normal 06-18-2018 [place] DAVID Moura ([id number]) 1990 [facility] Time Provider Department ([id number]) 06/18/18 3:30 PM NURSE PNOB [facility] WSTR WOOB During your visit today, we recorded the following information about you: Last Period 04/21/18 Selena Ahuja RN 06/18/2018 4:20 PM Signed SEQUENTIAL SCREENINGS The [facility] offers sequential screenings for women who are interested in screenings for chromosomal abnormalities and certain defects during a . The sequential screen combines ultrasound and blood tests to determine the risk of chromosomal abnormalities, including Down's Syndrome (Trisomy 21) and Trisomy 18, as well as open neural tube defects including spina bifida. Ultrasound examination is performed between 11 weeks and 13 weeks gestational age. Blood tests are drawn after the ultrasound and again later in the between 15 and 21 weeks gestational age. Please let your physician know if you are interested in this testing. It will require an appointment with our automotive glass technician. This is not an ultrasound performed by a physician in our office during a routine visit. SIGNS AND SYMPTOMS OF LABOR 1. Contractions every 10 minutes or more often 2. Clear, pink, or brownish fluid (water) leaking from vagina 3. Feeling that baby is pushing down, pressure 4. Low, dull backache 5. Cramps that feel like a period 6. Cramps with or without diarrhea If you notice any of the above symptoms, contact our office at [phone] and ask to speak with a nurse. After hours, you can call doctors registry at [phone] OR call [facility] at [phone] and ask to have the doctor pumping station engineer paged. If you consider this an emergency, dial or go to your nearest emergency department. Cord-Blood Banking Up until recently, the umbilical cord--along with the blood that remained in it after a baby was born and the cord cut--was simply discarded by the hospital. Then, in the late , researchers discovered that cord blood possessed unusual properties that made it useful in the treatment of patients with some cancers and other illnesses. While the actual process of collecting cord blood is straightforward, many parents are not even aware that this option now exists, much less familiar with all the issues involved. The case for saving your baby's cord blood The blood running back and forth between your baby and the placenta is full of immature cells called stem cells. Unlike embryonic stem cells, which have the ability to develop into any type of body cell, cord-blood stem cells already are locked into a certain, vital function: making all the different components of the blood, such as platelets, white blood cells, and red blood cells-serving, in effect, like bone marrow. When transfused into a patient whose own blood cells have faulty genetic coding or have been destroyed by chemotherapy or other cancer treatments, the cord-blood cells can implant themselves in the bone marrow and generate legions of new, healthy cells. These days, cord-blood transplants most commonly are used in cancer patients when a donor can't be found for a bone-marrow transplant. The treatment is particularly effective in young patients-the [facility] reports a 70 percent success rate in children, but only 20 to 40 percent in adults. Researchers envision improving those odds and see many future applications as well, such as curing sickle cell disease and other blood-related genetic illnesses. So there is a possibility that your child, or someone else, may need these super-healthy and versatile cells one day. The drawbacks Aside from not knowing about this medical option, the main reason most people do not save their baby's stem cells is cost. In a private blood bank, the initial costs run from $275 to $1,500. Most also charge a yearly storage fee of $50 to $95. The advantage of using a private bank is that your sample is saved for only you to use. An alternative to private banking Public cord-blood sanchez are an alternative. These cost no money to use, but your sample is not specifically saved for you. Another person with a more immediate need may use it. If the time should come that you need stem cells, yours may still be available, or you may use donations from other people without charge. You also can direct your sample to go to a relative with an immediate need if the blood type matches. Anyone else needing to use stem cells from a public bank who has not been a donor must pay for it, sometimes tens of thousands of dollars. Will my family benefit from saving stem cells? Right now, situations in which stem cells would be helpful are quite rare. As mentioned earlier, stem-cell transplants are most commonly used for rare genetic conditions and for some types of cancer, including leukemia and lymphoma. And even with these present uses, many questions remain. In cancer treatment, for example, some researchers are concerned about the wisdom of transplanting back into the child the same cells that already showed a propensity to become malignant. Doctors also aren't sure if the number of cells taken at the time of would be enough to treat a full-grown 16-year-old. It is also not completely clear how active the cells would be after years of being stored. The treatment is so new and rare, we just don't have the data yet to resolve these important issues. What do the experts say? The [employer] encourages philanthropic blood banking in public sanchez, but only for families with a current or potential need. Blood-bank proponents encourage any kind of banking, pointing out that research is getting closer and closer to many diverse, live-saving applications. How do I decide? Each family must weigh the pros and cons for themselves. Some families say that any cost is worth their peace of mind. Others say that in the face of uncertainty about the effectiveness of the treatment, they will use their resources elsewhere. Some choose the middle ground of donating publicly, knowing that their sample might benefit another family, if not themselves. For more information, ask your doctor or nurse, and be sure to check out our article on the technical aspects of cord-blood banking. Technical Aspects of Cord-Blood Banking If you are interested in storing your baby's umbilical-cord blood because of its possible use in emerging medical treatments, you must make arrangements with a blood bank before your child is born. The collection procedure is quite simple: After delivery of the baby, the umbilical cord is clamped and cut in the usual way. The blood that remains in the umbilical-cord vessels is then collected in sterile containers. The blood may be removed from the cord with a large needle or allowed to flow freely, depending on the company's collection system. The containers may look like large test tubes or like the plastic bags used in a blood bank. It does not cause the mother or the baby any pain to collect the blood, and no blood is taken that the baby needs at the moment. The nurse, vibration engineer, or physician will then label the samples, check them over with you, and package them for a special pickup arranged with a commercial carrier. When the blood arrives at the blood-bank facility, it is processed and the parents are notified. It is then kept in an advanced storage system for years. How do I know that my sample is safe? Power outages and bankruptcies potentially could threaten any organization, but so far none have been reported. It is to be hoped that the scientists in these sanchez would arrange for safe transfer to another facility if the need arose. YOU MUST MAKE ARRANGEMENTS AHEAD OF TIME! Public cord-blood sanchez--DONATION: [employer] [phone] [facility]'s Placental Blood Program, [facility] U[facility]ilical Cord Blood [facility], Private cord-blood sanchez--SAVING FOR YOUR OWN USE: [employer], (I think this is the least expensive) [employer] [phone] [employer], [phone] [phone] [place] [facility], [phone], [phone] [facility], Cord Blood Registry, [phone]) [facility], An Internet search may provide you with additional listings. Referring Provider: SELF [200] Allergies As of Date: 06/18/2018 Noted Allergy Reaction environmental [Other] 03/23/2007 Comments: seasonal allergies Date Reviewed: 06/18/2018 Reviewed by: Selena Ahuja RN - Fully Assessed Reason for Visit: Care [86] Cmt: Pre-New OB Primary Visit Diagnosis:Supervision of normal first , antepartum [Z34.00] Other Visit Diagnoses:Nausea and vomiting in [O21.9] Bleeding in early [O20.9] History of depression [Z86.59] Nausea and vomiting during [O21.9] Tobacco use during , antepartum [O99.330] Patient requested diagnostic testing [Z01.89] Order(s):UA DIP B/O [] Order #: [id number] OSMEL PT ED PUBLIC SPEAKING COACH [] Order #: [id number]: 1 FUTURE OSMEL PT ED ANESTHESIA [[id number]] Order #: [id number]: 1 FUTURE OSMEL PT ED PUBLIC SPEAKING COACH [] Order #: [id number]: 1 FUTURE OSMEL WHAT TO EXPECT DURING YOUR HOSPITAL STAY [] Order #: [id number]: 1 FUTURE OSMEL PT ED PUBLIC SPEAKING COACH [] Order #: [id number]: 1 FUTURE OSMEL PT ED PUBLIC SPEAKING COACH [] Order #: [id number]: 1 FUTURE OSMEL PT ED PUBLIC SPEAKING COACH [] Order #: [id number]: 1 FUTURE OSMEL PT ED PUBLIC SPEAKING COACH [] Order #: [id number]. #:[id number]: 1 OSMEL PT ED ANESTHESIA [[id number]] Order #: [id number]. #:[id number]: 1 OSMEL PT ED PUBLIC SPEAKING COACH [] Order #: [id number]. #:[id number]: 1 OSMEL WHAT TO EXPECT DURING YOUR HOSPITAL STAY [[id number]] Order #: [id number]. #:[id number]: 1 OSMEL PT ED PUBLIC SPEAKING COACH [] Order #: [id number]. #:[id number]: 1 OSMEL PT ED PUBLIC SPEAKING COACH [] Order #: [id number]. #:[id number]: 1 OSMEL PT ED PUBLIC SPEAKING COACH [] Order #: [id number]. #:[id number]: 1 promethazine (PHENERGAN) 25 mg tabletTake 1 tablet by mouth every 6 hours as needed. TAKE ONE TABLET EVERY 6 HOURS PRNDisp: 20 tabletRfl: 1 Prescriptions as of 06/18/2018 Sig: VITAMIN,CALCIUM,MINE* Take 1 tablet by mouth. PYRIDOXINE (VITAMIN B6) 100 M* Take 100 mg by mouth once sanchez* SERTRALINE 25 MG TABLET Take 25 mg by mouth once sotero* PROMETHAZINE 25 MG TABLET Take 1 tablet by mouth every * MEDROXYPROGESTERONE 150 MG/ML* Inject 150 mg intramuscularly* Problem List As Of Date 06/18/2018 Noted Resolved Pain in Joint, Lower Leg [M25.569] INVALID FOR*02/01/2010 Cystic acne [L70.0] INVALID FOR* Bleeding in early [O20.9] INVALID FOR* More... History of depression [Z86.59] INVALID FOR* More... Nausea and vomiting during [O21.9] INVALID FOR* More... Tobacco use during , antepartum [O99.3*INVALID FOR* More... Patient requested diagnostic testing [Z01.89] INVALID FOR* More... Other instructions from your clinician: SEQUENTIAL SCREENINGS The [facility] offers sequential screenings for women who are interested in screenings for chromosomal abnormalities and certain defects during a . The sequential screen combines ultrasound and blood tests to determine the risk of chromosomal abnormalities, including Down's Syndrome (Trisomy 21) and Trisomy 18, as well as open neural tube defects including spina bifida. Ultrasound examination is performed between 11 weeks and 13 weeks gestational age. Blood tests are drawn after the ultrasound and again later in the between 15 and 21 weeks gestational age. Please let your physician know if you are interested in this testing. It will require an appointment with our automotive glass technician. This is not an ultrasound performed by a physician in our office during a routine visit. SIGNS AND SYMPTOMS OF LABOR 1. Contractions every 10 minutes or more often 2. Clear, pink, or brownish fluid (water) leaking from vagina 3. Feeling that baby is pushing down, pressure 4. Low, dull backache 5. Cramps that feel like a period 6. Cramps with or without diarrhea If you notice any of the above symptoms, contact our office at [phone] and ask to speak with a nurse. After hours, you can call doctors registry at [phone] OR call [facility] at [phone] and ask to have the doctor pumping station engineer paged. If you consider this an emergency, dial 9-1-1 or go to your nearest emergency department. Cord-Blood Banking Up until recently, the umbilical cord--along with the blood that remained in it after a baby was born and the cord cut--was simply discarded by the hospital. Then, in the late , researchers discovered that cord blood possessed unusual properties that made it useful in the treatment of patients with some cancers and other illnesses. While the actual process of collecting cord blood is straightforward, many parents are not even aware that this option now exists, much less familiar with all the issues involved. The case for saving your baby's cord blood The blood running back and forth between your baby and the placenta is full of immature cells called stem cells. Unlike embryonic stem cells, which have the ability to develop into any type of body cell, cord-blood stem cells already are locked into a certain, vital function: making all the different components of the blood, such as platelets, white blood cells, and red blood cells-serving, in effect, like bone marrow. When transfused into a patient whose own blood cells have faulty genetic coding or have been destroyed by chemotherapy or other cancer treatments, the cord-blood cells can implant themselves in the bone marrow and generate legions of new, healthy cells. These days, cord-blood transplants most commonly are used in cancer patients when a donor can't be found for a bone-marrow transplant. The treatment is particularly effective in young patients-the [facility] reports a 70 percent success rate in children, but only 20 to 40 percent in adults. Researchers envision improving those odds and see many future applications as well, such as curing sickle cell disease and other blood-related genetic illnesses. So there is a possibility that your child, or someone else, may need these super-healthy and versatile cells one day. The drawbacks Aside from not knowing about this medical option, the main reason most people do not save their baby's stem cells is cost. In a private blood bank, the initial costs run from $275 to $1,500. Most also charge a yearly storage fee of $50 to $95. The advantage of using a private bank is that your sample is saved for only you to use. An alternative to private banking Public cord-blood sanchez are an alternative. These cost no money to use, but your sample is not specifically saved for you. Another person with a more immediate need may use it. If the time should come that you need stem cells, yours may still be available, or you may use donations from other people without charge. You also can direct your sample to go to a relative with an immediate need if the blood type matches. Anyone else needing to use stem cells from a public bank who has not been a donor must pay for it, sometimes tens of thousands of dollars. Will my family benefit from saving stem cells? Right now, situations in which stem cells would be helpful are quite rare. As mentioned earlier, stem-cell transplants are most commonly used for rare genetic conditions and for some types of cancer, including leukemia and lymphoma. And even with these present uses, many questions remain. In cancer treatment, for example, some researchers are concerned about the wisdom of transplanting back into the child the same cells that already showed a propensity to become malignant. Doctors also aren't sure if the number of cells taken at the time of would be enough to treat a full-grown 16-year-old. It is also not completely clear how active the cells would be after years of being stored. The treatment is so new and rare, we just don't have the data yet to resolve these important issues. What do the experts say? The [employer] encourages philanthropic blood banking in public sanchez, but only for families with a current or potential need. Blood-bank proponents encourage any kind of banking, pointing out that research is getting closer and closer to many diverse, live-saving applications. How do I decide? Each family must weigh the pros and cons for themselves. Some families say that any cost is worth their peace of mind. Others say that in the face of uncertainty about the effectiveness of the treatment, they will use their resources elsewhere. Some choose the middle ground of donating publicly, knowing that their sample might benefit another family, if not themselves. For more information, ask your doctor or nurse, and be sure to check out our article on the technical aspects of cord-blood banking. Technical Aspects of Cord-Blood Banking If you are interested in storing your baby's umbilical-cord blood because of its possible use in emerging medical treatments, you must make arrangements with a blood bank before your child is born. The collection procedure is quite simple: After delivery of the baby, the umbilical cord is clamped and cut in the usual way. The blood that remains in the umbilical-cord vessels is then collected in sterile containers. The blood may be removed from the cord with a large needle or allowed to flow freely, depending on the company's collection system. The containers may look like large test tubes or like the plastic bags used in a blood bank. It does not cause the mother or the baby any pain to collect the blood, and no blood is taken that the baby needs at the moment. The nurse, vibration engineer, or physician will then label the samples, check them over with you, and package them for a special pickup arranged with a commercial carrier. When the blood arrives at the blood-bank facility, it is processed and the parents are notified. It is then kept in an advanced storage system for years. How do I know that my sample is safe? Power outages and bankruptcies potentially could threaten any organization, but so far none have been reported. It is to be hoped that the scientists in these sanchez would arrange for safe transfer to another facility if the need arose. YOU MUST MAKE ARRANGEMENTS AHEAD OF TIME! Public cord-blood sanchez--DONATION: [employer] [phone] [facility]'s Placental Blood Program, [facility] Umbilical Cord Blood [facility], Private cord-blood sanchez--SAVING FOR YOUR OWN USE: [employer], (I think this is the least expensive) [employer] [phone] [employer], [phone]) [employer] [place] [facility], [phone], [phone] [place] [facility], [facility], (612) [employer], An Internet search may provide you with additional listings. Prescriptions ordered this encounter Disp Refills Start End PROMETHAZINE 25 MG TABLET 20 t* 1 06/18/2018 Route: ORAL Sig: Take 1 tablet by mouth every 6 hours as needed. TAKE ONE TABLET EVERY 6 HOURS PRN Disposition: Return in 8 days (on 06/26/2018) for New OB with Dr Felton. Follow-up and Disposition History Recorded Encounter Status:Closed by SELENA AHUJA RN on 06/18/18 progress on 2018-07-23 Protein HNO ID: [id number] Normal 07-23-2018 [facility] Author: [facility] conc Service: (none) [place] Author Type: (none) ([id number]) Type: Progress Notes Filed: 07/23/2018 4:35 PM Note Text: 27 year old female here for INACTIVATED INFLUENZA VACCINE. 7114-4263 Season Patient is identified by name and date of : Yes [] CONTRAINDICATIONS color enhanced section Age less than 6 months? No Allergy to eggs, chicken, chicken feathers, or chicken dander? No Allergy to thimerosal (a preservative) or formaldehyde? No History of severe reaction to any vaccine component or a previous dose of influenza vaccination? No History of Guillain-[place] Syndrome within 6 weeks after a previous influenza vaccine? No Current moderate or severe illness? No Current temperature greater or equal to 100.4F? No History of Bone Marrow Transplant in past 6 months or solid organ transplant in the past 3 months ? No [] VERIFICATION color enhanced section Was the answer Yes for any of the above contraindications? No contraindications present. Acceptable to proceed with vaccine. Patient/guardian agrees the above answers are true to the best of their knowledge? Yes Flu vaccine information sheet given? Yes See immunization activity in [facility] for details of immunizations adminstered today. Patient age: [age] year old For The 9040-8395 Flu Season 6-35 months old: Fluzone 0.25 ml - IM (Preservative Free) 3 years of age: Fluzone 0.5 ml - IM (Preservative Free) 3 years and older: Fluzone 0.5 ml- IM-(with Preservatives) 65+ years old: Fluzone High-Dose 0.5 ml - IM (Preservative Free) REMEMBER: If patient is less than 9 years of age and this is the first vaccine of Influenza to be received in any flu season, they should receive a second dose in one months time. hiv 12 combo (ag/ab) on 2018-07-23 HIV 12 Ag/Ab Non Reactive Non Reactive Normal 07-23-2018 [facility] ([id number]) Comment: Result Comment: (NOTE) HIV Information: [place] Rev. Code 3701.243(E): This information has been disclosed to you from confidential records protected from disclosure by state law. You shall make no further disclosure of this information without the specific, written, and informed release of the individual to whom it pertains, or as otherwise permitted by state law. A general authorization for the release of medical or other information is not sufficient for the purpose of the release of HIV test results or diagnoses. Performed By: #### CBC, RUBIGG, SYPHGX, HBSAG, HIV12C, SEQL1 ####[facility] [address] [place], [place] [phone] toxicology screen,ur on 2018-06-26 Amphetamines, Urine Negative Negative Normal 06-26-2018 [facility] ([id number]) Comment: Result Comment: Cutoff threshold at 1000 ng/mL. Performed By: #### UTOX2 #### [facility] [address] [address] Barbiturates, Urine Negative Negative Normal 06-26-2018 [facility] ([id number]) Comment: Result Comment: Cutoff threshold at 200 ng/mL. Performed By: #### UTOX2 #### [place] [id number] [place] [address] Benzodiazepines, Ur Negative Negative Normal 06-26-2018 [facility] ([id number]) Comment: Result Comment: Cutoff threshold at 200 ng/mL. Performed By: #### UTOX2 #### [address] [id number] [place] [address] Cannabinoids, Urine Negative Negative Normal 06-26-2018 [facility] ([id number]) Comment: Result Comment: Cutoff threshold at 50 ng/mL. Performed By: #### UTOX2 #### [place] [address] Cocaine, Urine Negative Negative Normal 06-26-2018 [facility] ([id number]) Comment: Result Comment: Cutoff threshold at 300 ng/mL. Performed By: #### UTOX2 #### [id number] [place] [address] Ethanol, Urine <11 <11 Normal 06-26-2018 [facility] ([id number]) Comment: Performed By: #### UTOX2 #### [address] [place] [address] [place] [address] Opiates, Urine Negative Negative Normal 06-26-2018 [facility] ([id number]) Comment: Result Comment: Cutoff threshold at 300 ng/mL. Performed By: #### UTOX2 #### [facility] [address] [id number] Oxycodone, Urine Negative Negative Normal 06-26-2018 [facility] ([id number]) Comment: Result Comment: Cutoff threshold at 100 ng/mL. Comment: Immunoassay screen only. Cross reactivity with other substances can occur with immunoassay screening. Detection of any drug(s) in this urine toxicology panel is presumptive only. These tests are for med ica purposes only and should not be used for compliance monitoring, legal, or forensic use. Samples should be within normal physiological conditions (e.g. pH). This assay does not include adulteration/specimen validity testing. In clinical settings, confirmatory testing is at the practitioner's discretion [1]. If clinically indicated, confirmation by high specificity, quantitative methodology, which includes adulteration/speci men validity testing, may be requested on the same specimen through Client Services ([phone]) if contacted within 48 hours of initial testing. [1]Substance Abuse and Mental Health Services Administration (2012). Clinical Drug Testing in Primary Care Technical Assistance Publication Series 32. Department of Health and Human Services, [place], p.10. These tests were developed and their performance characteristics determined by [facility]'s [facility] [place] ([facility]). They have not been cleared or a pproved by the FDA. [facility] is regulated under CLIA as qualified to perform high complexity testing. These tests are used for clinical purposes. They should not be regarded as investigational or for research. Performed By: #### UTOX2 #### [facility] [address] [place], [place] [address] Phencyclidine, Urine Negative Negative Normal 06-26-2018 [facility] ([id number]) Comment: Result Comment: Cutoff threshold at 25 ng/mL. Performed By: #### UTOX2 #### [facility] [address] [id number] progress on 2018-06-26 Protein mass HNO ID: [id number] Normal 06-26-2018 [facility] Author: Davi Felton [place] ([id number]) Service: (none) Author Type: Physician Type: Progress Notes Filed: 06/26/2018 3:58 PM Note Text: INITIAL OB ASSESSMENT OB Provider: Davi Felton MD HPI: David De La O is a 27 year old female here to establish Obstetrical Care. Patient's last menstrual period was 04/21/2018 (exact date). from OB Dating Form. Cycle length: 28 days Complaints: vaginal bleeding spotting on wiping today- otherwise no bleeding. was unplanned but accepted. Obstetric History T0 L0 SAB0 TAB0 Ectopic0 Multiple0 Live Births0 Prior : never History of 4th degree laceration: No Patient's Risk Screening for delivery: History of abnormal pap: No Prior treatment for cervical dysplasia: none. History of STDs: None Tobacco use: Yes- 11/13 ppd Caffeine use: Yes Drug use: Yes- prior to finding out she was - smoked marijuana Alcohol use: No Multivitamin with Folic acid: Yes Occupation: [employer] Judaism or heritage: No Would refuse blood transfusion if medically necessary: No No weight on file for this encounter. Patient BMI over 30? No Marital Status:Single Partner: Name: Júnior Diamond Age: 30 Occupation: [employer] Gender: male History of STDs: None PAST MEDICAL HISTORY Diagnosis Date - Depression - past medical history 2010 normal color vision PAST SURGICAL HISTORY Procedure Laterality Date - NONE Current Outpatient Prescriptions on File Prior to Visit: Wtxnzqbz-Hy-Vls-Fe-FA ( VITAMIN) tab Take 1 tablet by mouth. pyridoxine, vitamin B6, (VITAMIN B-6) 100 mg tablet Take 100 mg by mouth once daily. promethazine (PHENERGAN) 25 mg tablet Take 1 tablet by mouth every 6 hours as needed. TAKE ONE TABLET EVERY 6 HOURS PRN sertraline (ZOLOFT) 25 mg tablet Take 25 mg by mouth once daily. medroxyPROGESTERone (DEPO-PROVERA) 150 mg/mL injection Inject 150 mg intramuscularly every 12 weeks. No current facility-administered medications on file prior to visit. Review of Systems: GENERAL: Negative for: Fever or Chills HEENT: Negative for: Headache, Impaired Vision, Ringing in Ears, Nosebleeds NECK: Negative for: Swelling, Pain, Stiffness RESPIRATORY: Negative for: Cough, Shortness of breath, Wheezing GASTROINTESTINAL: Negative for: Heartburn, Constipation, Diarrhea, Blood in stool, Vomiting MUSCULOSKELETAL: Negative for: Muscle or joint pain, stiffness, Joint swelling NEUROLOGIC/PSYCHIATRIC: H/o depression on zoloft. SKIN: Negative for: Rash, Itching GENITOURINARY: Negative for: vaginal itching, vaginal discharge, hematuria or dysuria PHYSICAL EXAM: BP 116/72 Ht 5' 6 (1.68m) Wt 131 lb (59.4kg) LMP 04/21/2018 BMI 21.15 kg/(m2). GENERAL: pleasant female in no apparent distress DERMATOLOGY: Normal, without lesions, non-icteric and non-hirsute NECK: Supple, full range of motion, no adenopathy and thyroid normal BREAST: soft, non-tender, symmetric, no dominant mass, normal nipple-areolar complex, no lymphadenopathy and no nipple discharge ABDOMEN: soft, non-tender and no masses NEURO: alert and oriented x3,exam grossly non-focal PELVIS: External genitalia normal without lesions. Perineal body intact. No vaginal or cervical lesions. Cervix closed. Uterus 9 week size. No adnexal masses or tenderness. Clinical Pelvimetry: Pelvimetry clinically assessed as adequate Limited OB ultrasound exam: single intrauterine and positive cardiac activity ASSESSMENT: 27 year old at 9.3 wks gestational age PLAN: 1) Patient oriented to practice. Discussed nutrition, folic acid supplementation, dietary guidelines, exercise, smoking, alcohol, caffeine, and drug use. Discussed routine OB labs including STD/HIV. Discussed aneuploidy screening options including serum screening and nuchal translucency. 2) NT ordered 3) smoking cessation reviewed Follow up in 4 weeks or sooner prn. Davi Mar MD hpv w/genotype on 2018-06-26 HPV Positive for one or more of the Critically [facility] high risk types: abnormal Clinic Other 31,33,35,39,45,51,52,56,58,59,66,68 [place] by PCR ([id number]) Comment: Result Comment: This test was developed and its performance characteristics determined by [facility] [place] ([facility]). It has not been cleared or approved by the FDA. -[facility] is regulated under CLIA as qualified to perform high-complexity testing. This test is used for clinical purposes. It should not be regarded as inv estigational or for research. Performed By: #### HPVHRR ####[facility] [place], [place] [phone] HPV HighRisk Type 16 Negative for HPV DNA Normal 06-26-2018 [facility] high risk type 16 by [place] ([id number]) PCR. Comment: Performed By: #### HPVHRR ####[facility] [place], [place] [phone] HPV HighRisk Type 18 Negative for HPV DNA Normal 06-26-2018 [facility] high risk type 18 by [place] ([id number]) PCR. Comment: Performed By: #### HPVHRR ####[facility] [phone] gc/chlamydia amplif on 2018-06-26 Chlamydia Amplif Negative for Chlamydia Normal 06-26-2018 [facility] trachomatis by [place] ([id number]) amplification. Comment: Performed By: #### GCCT #### [id number] [place] [address] GC Amplification Negative for Neisseria Normal 06-26-2018 [facility] gonorrhoeae by [place] ([id number]) amplification. Comment: Performed By: #### GCCT #### [id number] [place] [address] GC/Chlam Amp Source Cervix Normal 06-26-2018 [facility] ([id number]) Comment: Performed By: #### GCCT #### [id number] [place] [id number] cnpn on 2018-06-11 CNPN Telephone (WOOB) Normal 06-11-2018 [place] DAVID Moura ([id number]) 1990 [facility] Date Time Provider Department ([id number]) 06/11/18 RAMO HEATON (OCTAVIA) WOOB During your visit today, we recorded the following information about you: Selena Ahuja RN 06/11/2018 4:41 PM Signed Left message for patient to return phone call. Patient had PNOB scheduled for today and did not show. Please ask her if she would like to reschedule. Daysi Fermin RN 06/15/2018 3:23 PM Signed PNOB rescheduled for 06/18/18. Daysi Fermin RN Allergies As of Date: 06/11/2018 Noted Allergy Reaction environmental [Other] 03/23/2007 Comments: seasonal allergies Date Reviewed: 06/09/2018 Reviewed by: Blair Martinez - Fully Assessed Reason for Visit: Missed Appointment [1304] Prescriptions as of 06/11/2018 Sig: SERTRALINE 25 MG TABLET Take 25 mg by mouth once sotero* MEDROXYPROGESTERONE 150 MG/ML* Inject 150 mg intramuscularly* Problem List As Of Date 06/11/2018 Noted Resolved Pain in Joint, Lower Leg [M25.569] INVALID FOR*02/01/2010 Cystic acne [L70.0] INVALID FOR* Encounter Status:Closed by SELENA AHUJA RN on 06/15/18 progress on 2018-06-09 Protein mass conc HNO ID: [id number] Normal 06-09-2018 [facility] Author: Blair Martinez [place] ([id number]) Service: (none) Author Type: Physician Type: Progress Notes Filed: 06/09/2018 6:33 PM Note Text: A single intrauterine gestational sac is noted with a regular outline. No decidual hemorrhage is noted. The yolk sac appears normal. An embryo is visualized with a heart rate within normal range Estimated Date of Delivery: 01/26/19 EGA = 7w0d The CRL corresponds to the gestational age. RECOMMENDATIONS - Ultrasound examination at 11 to 13 weeks To mesure the nuchal translucency (NT) if first trimester screening is desired . urine culture on 2018-06-03 Bacteria identified Sp. Request/Comment: - Specimen received in preservative Normal 06-03-2018 [facility] Cx Nom (U) [place] ([id number]) Culture Result - No growth (<1,000 CFU/ml) Comment: Performed By: #### URCUL #### [facility] [address] [place], [place] [address] progress on 2018-06-02 Protein mass HNO ID: [id number] Normal 06-02-2018 [facility] Author: Ramo Guillaume) Sudarshan [place] ([id number]) Service: (none) Author Type: Cut Order Hand Type: Progress Notes Filed: 06/02/2018 5:16 PM Note Text: David De La O is a 27 year old female who presents for problem visit for vaginal bleeding. HPI: Here today as ER follow up for vaginal bleeding on 05/29/18. At that time, vaginal bleeding was slightly heavier than a menstrual period. No passage of clots or tissue. Had slight cramping that am. Since ER visit had spotting for two more days and nothing in the last two days. Admits to continued nausea throughout the day but no emesis. Has slight cramping intermittently but very mild, lower back pain also. Urinary frequency has started since ER visit and dysuria. No urgency or hematuria. PAST MEDICAL HISTORY Diagnosis Date - past medical history 2009 normal color vision PAST SURGICAL HISTORY Procedure Laterality Date - NONE FAMILY HISTORY Problem Relation Age of Onset - Heart Maternal Grandmother - Heart Paternal Grandfather Social History Marital status: Single Spouse name: Years of education: Number of children: 0 Occupational History Occupation Employer Comment At Home Currently Social History Main Topics Smoking status: Current Every Day Smoker Packs/day: 1.00 Years: 0.00 Smokeless tobacco: Never Used Comment: Parents both smoke and patient smokes a couple of cigarettes a couple of times a week Alcohol use: No Drug use: No Sexual activity: Yes Partners with: Male control/protection: Injection Comment: Depo Provera Current Outpatient Prescriptions: medroxyPROGESTERone (DEPO-PROVERA) 150 mg/mL injection Inject 150 mg intramuscularly every 12 weeks. No current facility-administered medications for this visit. Allergies As of Date: 06/02/2018 Allergen Noted Reaction ENVIRONMENTAL [OTHER] 03/23/2007 Fully Assessed 01/25/2013 REVIEW OF SYSTEMS Abdomen: No bloating, early satiety, indigestion, or increased flatulence. No abdominal pain, nausea, vomiting, diarrhea, or constipation. Bladder: No dysuria, gross hematuria, urinary frequency, urinary urgency, or incontinence. Breast: No breast lumps, nipple d/c, overlying skin changes, redness or skin retraction. Expanded ROS: N/A Allergies and current medication updated:Yes EXAM: There were no vitals taken for this visit. GENERAL: pleasant, female in no apparent distress HEENT: Normocephalic and atraumatic NECK: Supple and full range of motion ABDOMEN: soft, non-tender and no masses. No CVAT NEURO: alert and oriented x3,exam grossly non-focal EXTREMITIES: normal Quick bedside U/S today showed no pole. Yolk sac present. U/A 05/29/18: 6w0d, MIREYA: 01/22/18, left simple ovarian cyst. Yolk sac 3mm, gestational sac nml 1.2cm. No pole. ASSESSMENT AND PLAN: ASSESSMENT/PLAN: 1. Dysuria - ICD9: 788.1, ICD10: R30.0 (primary diagnosis) -Urine Culture - UA DIP B/O 2. Threatened - ICD9: 640.00, ICD10: O20.0 - OBSTETRIC ULTRASOUND WHI - Formal U/S ordered for viability in one week. Discussed with patient bleeding precautions, threatened and when to call. BARI [place] on 2018-06-02 CNOV Office Visit (WOOB) Normal 06-02-2018 [place] [facility] DAVID DE LA O ([id number]) 1990 [facility] Date Time Provider Department ([id number]) 06/02/18 3:00 PM RAMO HEATON (PABLO) WOOB During your visit today, we recorded the following information about you: Blood pressure Weight Last Period 94/56 57.2 kg 04/21/18 Ramo Heaton APRN.CNM 06/02/2018 5:16 PM Signed David Noguera Jim is a 27 year old female who presents for problem visit for vaginal bleeding. HPI: Here today as ER follow up for vaginal bleeding on 05/29/18. At that time, vaginal bleeding was slightly heavier than a menstrual period. No passage of clots or tissue. Had slight cramping that am. Since ER visit had spotting for two more days and nothing in the last two days. Admits to continued nausea throughout the day but no emesis. Has slight cramping intermittently but very mild, lower back pain also. Urinary frequency has started since ER visit and dysuria. No urgency or hematuria. PAST MEDICAL HISTORY Diagnosis Date - past medical history 2009 normal color vision PAST SURGICAL HISTORY Procedure Laterality Date - NONE FAMILY HISTORY Problem Relation Age of Onset - Heart Maternal Grandmother - Heart Paternal Grandfather Social History Marital status: Single Spouse name: Years of education: Number of children: 0 Occupational History Occupation Employer Comment At Home Currently Social History Main Topics Smoking status: Current Every Day Smoker Packs/day: 1.00 Years: 0.00 Smokeless tobacco: Never Used Comment: Parents both smoke and patient smokes a couple of cigarettes a couple of times a week Alcohol use: No Drug use: No Sexual activity: Yes Partners with: Male control/protection: Injection Comment: Depo Provera Current Outpatient Prescriptions: medroxyPROGESTERone (DEPO-PROVERA) 150 mg/mL injection Inject 150 mg intramuscularly every 12 weeks. No current facility-administered medications for this visit. Allergies As of Date: 06/02/2018 Allergen Noted Reaction ENVIRONMENTAL [OTHER] 03/23/2007 Fully Assessed 01/25/2013 REVIEW OF SYSTEMS Abdomen: No bloating, early satiety, indigestion, or increased flatulence. No abdominal pain, nausea, vomiting, diarrhea, or constipation. Bladder: No dysuria, gross hematuria, urinary frequency, urinary urgency, or incontinence. Breast: No breast lumps, nipple d/c, overlying skin changes, redness or skin retraction. Expanded ROS: N/A Allergies and current medication updated:Yes EXAM: There were no vitals taken for this visit. GENERAL: pleasant, female in no apparent distress HEENT: Normocephalic and atraumatic NECK: Supple and full range of motion ABDOMEN: soft, non-tender and no masses. No CVAT NEURO: alert and oriented x3,exam grossly non-focal EXTREMITIES: normal Quick bedside U/S today showed no pole. Yolk sac present. U/A 05/29/18: 6w0d, MIREYA: 01/22/18, left simple ovarian cyst. Yolk sac 3mm, gestational sac nml 1.2cm. No pole. ASSESSMENT AND PLAN: ASSESSMENT/PLAN: 1. Dysuria - ICD9: 788.1, ICD10: R30.0 (primary diagnosis) -Urine Culture - UA DIP B/O 2. Threatened - ICD9: 640.00, ICD10: O20.0 - OBSTETRIC ULTRASOUND WHI - Formal U/S ordered for viability in one week. Discussed with patient bleeding precautions, threatened and when to call. Ramo Heaton APRN.CNM Referring Provider: SELF [200] Allergies As of Date: 06/02/2018 Noted Allergy Reaction environmental [Other] 03/23/2007 Comments: seasonal allergies Date Reviewed: 06/02/2018 Reviewed by: Tiffany Philippe Ma - Fully Assessed Reason for Visit: early ob bleeding [Other] Primary Visit Diagnosis:Dysuria [R30.0] Other Visit Diagnosis:Threatened [O20.0] Order(s):UA DIP B/O [[id number]] Order #: [id number] OBSTETRIC ULTRASOUND WHI [[id number]] Order #: [id number]: 1 URINE CULTURE [SQURCUL] Order #: [id number] Prescriptions as of 06/02/2018 Sig: SERTRALINE 25 MG TABLET Take 25 mg by mouth once sotero* MEDROXYPROGESTERONE 150 MG/ML* Inject 150 mg intramuscularly* Problem List As Of Date 06/02/2018 Noted Resolved Pain in Joint, Lower Leg [M25.569] INVALID FOR*02/01/2010 Cystic acne [L70.0] INVALID FOR* Disposition: Return in about 1 week (around 06/09/2018) for One week with U/S followed by follow up visit. Follow-up and Disposition History Recorded Encounter Status:Closed by RAMO HEATON on 06/02/18 Encounters Date Type Reason Provider Location 02-15-2019 - Patient encounter DAVI KELLY [facility] 02-16-2019 procedure JOSE FRANCISCO [place] ([id number]) 01-26-2019 - Patient encounter [facility] 01-28-2019 procedure [place] ([id number]) 01-15-2019 - Patient encounter [facility] 01-15-2019 procedure [place] ([id number]) 01-07-2019 - Patient encounter ALCIRA (CNM) [facility] 01-11-2019 procedure RAMO (CNM) [facility] ([id number]) 01-05-2019 - Patient encounter RAMO (CNM) [facility] 01-07-2019 procedure [place] ([id number]) 12-30-2018 - Patient encounter EARNEST [facility] 12-31-2018 procedure [place] ([id number]) 12-22-2018 - Patient encounter [facility] 12-22-2018 procedure [place] ([id number]) 12-16-2018 - Patient encounter [facility] 12-17-2018 procedure [place] ([id number]) 12-02-2018 - Patient encounter DEANNA Noguera [facility] 12-03-2018 procedure [place] ([id number]) 11-18-2018 - [facility] [place] ([id number]) 11-04-2018 - Patient encounter ALCIRA (CNM) [facility] 11-19-2018 procedure [place] ([id number]) 10-14-2018 - Patient encounter DEANNA Noguera [facility] 10-15-2018 procedure [place] ([id number]) 09-30-2018 - Patient encounter BLAIR Roach [facility]02[id number] [place] 09-16-2018 - Patient encounter RAMO (CNM) [facility] 09-24-2018 procedure [facility] ([id number]) 09-03-2018 - Patient encounter MEL GREWAL [facility] 09-04-2018 procedure [facility] ([id number]) 08-20-2018 - [facility] NEY[facility] ([id number]) KIN PRITCHARD 07-28-2018 - Patient encounter KIN SANDERSON [facility] 07-29-2018 procedure FRANCHESKA [facility] ([id number]) 07-23-2018 - [id number] - Patient encounter BLAIR Roach [facility] 07-27-2018 [facility] [place] ([id number]) [place] 06-26-2018 - Patient encounter DAVI KELLY [facility] 06-29-2018 procedure [facility] ([id number]) 06-18-2018 - Patient encounter [facility] 06-19-2018 procedure [place] ([id number]) 06-09-2018 - Patient encounter BLAIR MARTINEZ [facility] 06-10-2018 procedure RAMO (CNM) HEATON [facility] ([id number]) KIN PRITCHARD 06-02-2018 - Patient encounter KIN PRITCHARD [facility] 06-03-2018 procedure [place] ([id number]) Procedures Procedure Name Date Provider Location Antibody screen 07-23-2018 [facility] ([id number]) Comment: Performed By: #### URCUL #### [facility] [address] [place] [id number] Summary Purpose DATE CREATED AUTHOR AUTHOR'S ORGANIZATION 02/23/2019 [facility] Family History No Family History Records Found Advance Directives No Advanced Directives Records Found Additional Source Comments FOR RECORDS PERTAINING TO PATIENTS WHO ARE OR HAVE BEEN ENROLLED IN A CHEMICAL DEPENDENCY/SUBSTANCE ABUSE PROGRAM, SOME INFORMATION MAY BE OMITTED. This clinical summary was aggregated from multiple sources. Caution should be exercised in using it in the provision of clinical care. This summary normalizes information from multiple sources, and as a consequence, information in this document may materially changethe coding, format and clinical context of patient data. In addition, data may be omittedin some cases. CLINICAL DECISIONS SHOULD BE BASED ON THE PRIMARY CLINICAL RECORDS. [facility] provides no warranty or guarantee of the accuracy or completeness of information in this document. UNRECOGNIZED CONTENT PROVIDED BELOW FOR UNRECOGNIZED SECTION INFORMATION SOURCE DATE CREATED AUTHOR AUTHOR'S ORGANIZATION 02/23/2019 [facility]
== END 2019-01-10 23:59 | disposition home or self-care (01) ==
LOC: ED 03-30 12:42
PROVIDERS: Emergency Provider Emergency Medicine
DX: I10 Essential (primary) hypertension (principal); Z53.21 Procedure and treatment not carried out due to patient leaving prior to being seen by health care provider

== ENCOUNTER 2019-01-10 23:30 | Outpatient (CLI) | payer MEDICAID, SELFPAY ==
[2019-01-10 23:51] VITALS: BMI 30.6
[2019-01-11 00:22] LABS: Hematocrit 31.9 % (37-47); Hemoglobin 10.4 g/dl (12.0-15.0); Mean Corp Hgb Conc 32.6 g/gl (32-36); Mean Corpuscular Hgb 29.5 pg (27.0-32.0); Mean Corpuscular Volume 90.4 fL (81-99); Mean Platelet Vol. 11.3 fl (6.2-12.0); Platelet Count 266 K/mm3 (150-450); RBC Distribution Width CV 13.4 % (11.6-14.6); RBC Distribution Width SD 44.3 fl (35.1-43.9); Red Blood Count 3.53 M/mm3 (4.2-5.4); Scan Indicated on CBC? Y/N NO; White Blood Count 14.9 K/mm3 (4.4-11.0)
[2019-01-11 00:30] LABS: Prothrombin Time (Protime)PT. 12.6 SECONDS (11.7-14.9)
[2019-01-11 00:31] LABS: Partial Thromboplast Time 28.5 Seconds (24.1-36.2)
[2019-01-11 00:36] LABS: AST(SGOT) 32 U/L (15-37); Alanine Aminotransfer ALT/SGPT 22 U/L (13-56); EST Glomerular Filtration Rate 92 mL/min (>60); Est Glom Filt Rate - Afr Amer 111 mL/min (>60); Estimated Creatinine Clearance 92.02 ml/min; Uric Acid 4.3 mg/dL (2.6-6.0)
[2019-01-11] MEDS: Acetaminophen 500 MG Tablet 1000 MG PO (00:47)
--- NOTE | 2019-01-14 12:21 | OB.TRI.NOTE ---
History of Present Illness Date of Service: 01/10/19 Was patient seen by the physician?: No Reason For Visit: BLOOD PRESSURE Date of Service: 01/10/19 Final MIREYA Source: US <20 weeks Allergies No Known Allergies Allergy (Verified 01/10/19 23:50) Laboratory Studies: Laboratory Tests 01/10/19 01/10/19 01/10/19 Range/Units 23:58 23:58 23:58 WBC 14.9 H (4.4-11.0) K/mm3 RBC 3.53 L (4.2-5.4) M/mm3 Hgb 10.4 L (12.0-15.0) g/dl Hct 31.9 L (37-47) % MCV 90.4 (81-99) fL MCH 29.5 (27.0-32.0) pg MCHC 32.6 (32-36) g/gl RDW 13.4 (11.6-14.6) % RDW Differential 44.3 H (35.1-43.9) fl Plt Count 266 (150-450) K/mm3 MPV 11.3 (6.2-12.0) fl PT 12.6 (11.7-14.9) SECONDS INR 1.0 APTT 28.5 (24.1-36.2) Seconds Creatinine 0.80 (0.55-1.02) mg/dL Estim Creat Clear Calc 92.02 ml/min Est GFR (MDRD) Af Amer 111 (>60) mL/min Est GFR (MDRD) Non-Af 92 (>60) mL/min Uric Acid 4.3 (2.6-6.0) mg/dL AST 32 (15-37) U/L ALT 22 (13-56) U/L Impression/Plan 28yo that was discharged home PPD#, presents to [facility] on PPD#3 with elevated BP- pt did have preeclampsia without severe features 1) PRE E labs done and monitor VS with serial BPs- stable 2) dc home with follow up in office this week for bp check
== END 2019-01-11 01:25 | disposition home or self-care (01) ==
LOC: WPOUT 23:32 → WP 23:41
PROVIDERS: Referring Provider Obstetrics & Gynecology; Visit Provider Obstetrics & Gynecology
DX: O14.95 Unspecified pre-eclampsia, complicating the puerperium (principal)
CPT/HCPCS: 36415; 82565; 84450; 84460; 84550; 85027; 85610; 85730; 99218; G0378

== ENCOUNTER → 2021-07-18 | Outpatient (CLI) | payer OTHER, SELFPAY | END | disposition home or self-care (01) | PROVIDERS: Visit Provider Physician Assistant | DX: Z20.822 Contact with and (suspected) exposure to COVID-19 (principal) | CPT/HCPCS: 87635; U0005; U0003 ==